=== PATIENT | female | born 1955 | race Two or more races ===

== ENCOUNTER 2024-06-28 12:14 | Observation (INO) | payer MEDICARE, MEDICAID, SELFPAY ==
[2024-06-28 12:14] VITALS: BMI 25.3
[2024-06-28 13:03] VITALS: BP 108/65; PULSE 93; RESP 18; TEMP 36.8; O2SAT 97; BMI 25.7
--- NOTE | 2024-06-28 13:29 | XR_ITS ---
Examination: Foot bilateral, 5 views views Technique: Bilateral AP feet single view Right lateral foot left lateral foot 2 views Right oblique foot left oblique foot 2 views total 5 views Exam date and time: June 28, 2024 1355 hours INDICATIONS: Nonhealing ulcers on both feet. FINDINGS: Severe osteopenia Age indeterminate fracture at the base of the proximal phalanx fifth digit No aris cortical bone destruction Soft tissue vascular calcification IMPRESSION: No aris cortical bone destruction MRI right foot left foot follow-up would best assess for early osteomyelitis
[2024-06-28 13:59] LABS: Lactate (Lactic Acid) 2.4 mMol/L (0.4-2.0)
[2024-06-28 14:02] LABS: Basophils # (Auto) 0.1 Thou/mm3 (0.0-0.2); Basophils % (Auto) 1 % (0-2.5); Eosinophils # (Auto) 0.4 Thou/mm3 (0.0-0.5); Eosinophils % (Auto) 4 % (0-10); Hematocrit 37.7 % (36.0-46.0); Hemoglobin 12.1 g/dL (12.0-16.0); Immature Granulocytes % (Auto) 1 % (0-0); Immature Granulocytes Auto 0.06 Thou/mm3 (0.00-0.00); Lymphocytes # (Auto) 1.8 Thou/mm3 (1.0-4.8); Lymphocytes % (Auto) 17 % (10-50); Mean Corpuscular HGB Conc 32.1 g/dl (31.0-37.0); Mean Corpuscular Hemoglobin 26.2 pg (25.0-35.0); Mean Corpuscular Volume 82 fL (80-100); Monocytes % (Auto) 9 % (0-12); Neutrophils # (Auto) 6.9 Thou/mm3 (1.8-7.7); Neutrophils % (Auto) 68 % (37-80); Nucleated Red Blood Cell % 0 /100 WBC (0); Platelet Count 310 Thou/mm3 (140-440); RDW Standard Deviation 41.6 fL (36.4-46.3); Red Blood Count 4.61 Miln/mm3 (4.00-5.20); White Blood Count 10.1 Thou/mm3 (3.6-11.0)
[2024-06-28 14:18] LABS: INR 1.1 (0.9-1.3); Prothrombin Time 12.1 Seconds (9.0-12.2)
[2024-06-28 14:21] LABS: Sed Rate (ESR) 51 mm/hr (0-30)
[2024-06-28 14:49] LABS: Alanine Aminotransferase 15 U/L (10-49); Albumin, Serum 3.9 gm/dL (3.4-4.8); Albumin/Globulin Ratio 1.3 (1.2-2.2); Alkaline Phosphatase 96 U/L (46-116); Anion Gap 9 (7-16); Aspartate Amino Transferase 16 U/L (0-34); BUN/Creatinine Ratio 21 Ratio (12-20); Bilirubin,Total 0.4 mg/dL (0.3-1.2); Blood Urea Nitrogen 44 mg/dL (9-23); C-Reactive Protein 4.4 mg/dL (0.0-0.9); Calcium 9.1 mg/dL (8.3-10.6); Calcium (Corrected) 9.2 mg/dL (8.5-10.1); Carbon Dioxide 22.1 mMol/L (20.0-31.0); Chloride 106 mMol/L (98-107); Creatinine (Component) 2.1 mg/dL (0.6-1.3); Estimated Creatinine Clearance 23.1 mL/min (>60); Glucose 123 mg/dL (74-106); Osmolality,Calculated 286 (275-295); Potassium 5.1 mMol/L (3.4-5.1); Procalcitonin 0.11 ng/ml (0.0-0.49); Sodium 137 mMol/L (136-145); Total Protein 6.9 gm/dL (5.7-8.2); eGFR 25 See Note
--- NOTE | 2024-06-28 15:07 | PD.EDRME ---
Rapid Medical Screening Exam RME Arrival date/time: 06/28/24 12:14 69-year-old female presents emergency department complains of infection to bilateral feet Chief Complaint: Skin/Abscess/Foreign Body Time Seen by Provider: 06/28/24 12:51 Vital signs: Vital Signs Temperature 98.2 F 06/28/24 13:03 Pulse Rate 93 06/28/24 13:03 Respiratory Rate 18 06/28/24 13:03 Blood Pressure 108/65 06/28/24 13:03 Pulse Oximetry (%) 97 06/28/24 13:03 Oxygen Delivery Method Room Air 06/28/24 13:03
--- NOTE | 2024-06-28 16:29 | PD.EDSKIN ---
ED Skin Abcess FB-RME/HPI General Chief complaint: Skin/Abscess/Foreign Body Stated complaint: WOUNDS TO BILATERAL FEET Time Seen by Provider: 06/28/24 12:51 Arrival date/time: 06/28/24 12:14 RME / HPI RME / HPI narrative: 06/28/24 12:14 69-year-old female presents emergency department complains of infection to bilateral feet DR. GIBSON MAIN ED EVALUATION 69 year old female with history of hypertension and diabetes presents to the ED for evaluation of sores on both feet. Reportedly is cleaning and wrapping the sores on her feet at home. However has noticed no improvement and is concerned they may be infected. Denies stepping on any foreign bodies. No other complaints reported. Denies fevers or chills. Related Data Previous Rx's ?Medication ?Instructions ?Recorded naproxen 500 mg tablet (Naprosyn) 500 mg PO BID #30 tabs 03/07/19 insulin glargine 100 unit/mL (3 24 unit (0.24 mL) subcut QAM #15 mL 01/29/24 mL) subcutaneous pen (Lantus Solostar U-100 Insulin) insulin glargine 100 unit/mL (3 24 unit (0.24 mL) subcut QPM #15 mL 01/29/24 mL) subcutaneous pen (Lantus Solostar U-100 Insulin) lisinopril 20 mg tablet 20 mg PO QDAY #14 tabs 01/29/24 lisinopril 20 mg tablet 20 mg PO QDAY #14 tabs 01/29/24 Allergies Allergy/AdvReac Type Severity Reaction Status Date / Time promethazine Allergy Intermediate ANXIETY Verified 06/28/24 12:18 Review of Systems Review of Systems Narrative Review of Systems: GEN: No fever, no chills, no weight loss EYES: No discharge, no visual changes, no pain HEENT: No ear pain, no congestion, no sore throat PULM: No shortness of breath, no cough, no congestion CV: No chest pain, no palpitations GI: No nausea, no vomiting, no diarrhea, no pain, no constipation : No frequency, no urgency and no dysuria MUSC/SKEL No joint pain, no back pain SKIN: +wound on both feet. No rash NEURO: No weakness, no headache Past Medical History Past Medical History CARDIAC: Negative Congestive Heart Failure RESPIRATORY: Negative Chronic Obstructive Pulmonary Disease (COPD) GENITOURINARY: Negative Renal Disease ENDOCRINE: Positive Diabetes Mellitus Type 2 (not on any medications); Negative Diabetes Mellitus Type 1 Social History SMOKING STATUS: Never smoker ED Exam Narrative Physical exam: GENERAL APPEARANCE: Well hydrated, well nourished, in no acute distress. VITALS: All vitals were reviewed and the pulse ox is 97% on room air which is normal according to my interpretation. HEENT: Normocephalic, atramatic, EOMI. Moist oromucosa. No jaundice NECK: Supple, no JVD or bruits. CARDIOVASCULAR: Heart regular without S3-S4 or murmur. No rubs or gallops. LUNGS/CHEST: Clear to auscultation bilaterally. No rales, rhonchi, or wheezing. Normal inspection. ABDOMEN: Soft, nontender, with normal bowel sounds. No pulsatile masses. No rebound, rigidity, or guarding. No incarcerated hernia. Normal inspection and palpation. EXTREMITIES: Normal inspection and palpation. No edema, clubbing, or cyanosis. Intact CSM SKIN: There is one semi healing ulcer at the bottom of the the right great toe measuring approx. 1 cm no foul odor. There is a wound with a scab measuring approx. 1.5cm at the bottom of the left forefoot with mild redness and swelling to the surrounding tissue, palpation reveals fluctuance, no puss at this time. Warm and dry without rashes. NEURO: Alert and oriented x3. Cranial nerves II through XII grossly intact. PSYCHIATRIC: Normal mood and affect. No psychosis Course Quality Measures none Orders Category Date Time Status Consult to General Surgery Stat Cons 06/28/24 17:08 Ordered XR foot comp BI min 3V Stat Exams 06/28/24 13:29 Completed Blood Culture (Lab) Stat Lab 06/28/24 13:40 Received CBC Stat Lab 06/28/24 13:40 Completed CMP [Comprehensive Metabolic Panel] Stat Lab 06/28/24 13:40 Completed CRP [C-Reactive Protein] Stat Lab 06/28/24 13:40 Completed ESR [Sed Rate (ESR)] Stat Lab 06/28/24 13:40 Completed Lactic Acid [Lactate (Lactic Acid)] Stat Lab 06/28/24 13:40 Completed Lactic Acid, 3 HR Stat Lab 06/28/24 16:56 Ordered PT [Prothrombin Time with INR] Stat Lab 06/28/24 13:40 Completed Procalcitonin Stat Lab 06/28/24 13:40 Completed Piper/Tazo 3.375 gm [Zosyn] Med 06/28/24 17:07 Active 3.375 gm in 50 ml IV X1 Tetanus, Diphtheria Toxoids/Pf [Tenivac-Adult] Med 06/28/24 17:01 Discontinued 0.5 ml IMI .ONCE ONE Vancomycin Inj 1,000 mg Med 06/28/24 17:07 Active Sodium Chloride 0.9% 250 ml [Ns] 250 ml IV X1 Vital Signs Vital signs: Vital Signs Temperature 98.2 F 06/28/24 13:03 Pulse Rate 93 06/28/24 13:03 Respiratory Rate 18 06/28/24 13:03 Blood Pressure 108/65 06/28/24 13:03 Pulse Oximetry (%) 97 06/28/24 13:03 Oxygen Delivery Method Room Air 06/28/24 13:03 Skin / Abscess / Foreign Body MDM Narrative MDM Narrative:: Patient is insulin-dependent diabetic. She has been having this diabetic foot ulcer and scab in both feet for the last 1 week. She does not remember any injury or trauma or falling. She does not think that there is any foreign body in there. No fever. No pain. No other problem. And the blood sugar has been under control. On exam there is fluctuance and redness in the diabetic foot ulcer in the left forefoot measuring about 1 and half to 2 cm in diameter. There is scab over it. There is fluctuance. There is a small diabetic foot ulcer in the bottom of the right first toe measuring about 1 cm with scab. This 1 does not have any fluctuance. And no redness in the surrounding tissue. CBC unremarkable. BUN of 44 creatinine of 2.1. Sed rate of 51 which is elevated. Lactic acid is 2.4. Procalcitonin is negative. CRP is 44. Which is also elevated. Coagulation is negative. X-rays of both feet Was reviewed by and interpreted by me as follow: No acute fracture. Radiographically or clinically. Positive osteopenia. Positive for arthritis. No metallic foreign body seen which is confirmed by Dr. Rajinder Peterson based on my phone call with him. There is no free air in the soft tissue. No dislocation. 4:50 PM, I spoke to Dr. Chao, hospitalist in person. He is here and he has seen the patient with me. He agreed to admit the patient for further evaluation and treatment. He suggest surgical consultation. 5 PM, I spoke to and discussed with Dr. Lopez, surgeon on-call. He will consult. In the emergency department I am giving the patient tetanus vaccine, IV antibiotics namely Zosyn and vancomycin. It is already 5 PM. It is too late to order for the MRI for today. Patient data External records reviewed:: [facility] (I reviewed ED visit on 01/29/2024) Clinical information provided by:: patient Social determinants that could affect healthcare access:: none Patient has the following chronic illnesses:: HTN, DM How is presenting disease/condition affected by chronic disease/condition?: exacerbated by Evaluation data The following diagnostics were reviewed and interpreted by me:: lab results and radiology exam(s) Lab and/or radiology exams considered but not ordered:: None Interpretation Summary: Ordering Physician: Shantal MILLER),Andrés HERNANDEZ Date of Service: 06/28/24 Procedure(s): XR foot comp BI min 3V Accession Number(s): [id number] cc: Shantal MILLER),Andrés HERNANDEZ; Marty Stevens MD; Rajinder Peterson MD~ ADDENDUM ADDENDUM #1 Addendum: The indeterminate fracture at the base of the proximal phalanx is the left fifth digit ORIGINAL REPORT Examination: Foot bilateral, 5 views views Technique: Bilateral AP feet single view Right lateral foot left lateral foot 2 views Right oblique foot left oblique foot 2 views total 5 views Exam date and time: June 28, 2024 1355 hours INDICATIONS: Nonhealing ulcers on both feet. FINDINGS: Severe osteopenia Age indeterminate fracture at the base of the proximal phalanx fifth digit No aris cortical bone destruction Soft tissue vascular calcification IMPRESSION: No aris cortical bone destruction MRI right foot left foot follow-up would best assess for early osteomyelitis Addendum Dictated By: Rajinder Peterson MD Addendum Signed By: 06/28/241625 Addendum Cosigned By: DD/ TD/TT: 12/ Examination: Foot bilateral, 5 views views Technique: Bilateral AP feet single view Right lateral foot left lateral foot 2 views Right oblique foot left oblique foot 2 views total 5 views Exam date and time: June 28, 2024 1355 hours INDICATIONS: Nonhealing ulcers on both feet. FINDINGS: Severe osteopenia Age indeterminate fracture at the base of the proximal phalanx fifth digit No aris cortical bone destruction Soft tissue vascular calcification IMPRESSION: No aris cortical bone destruction MRI right foot left foot follow-up would best assess for early osteomyelitis Dictated By: Rajinder Peterson MD Signed By: <Electronically signed by Rajinder Peterson MD in OV> 06/28/24 1448 Medications / Prescriptions Medications or Prescriptions considered but not ordered:: None Medication administrations:: Medication Administration History Piperacillin/Tazobactam/Dextrose (Zosyn) 3.375 gm in 50 mls @ 100 mls/hr IV X1 ONE Stop: 06/28/24 17:36 Vancomycin HCl 1,000 mg/ (Sodium Chloride) 250 mls @ 150 mls/hr IV X1 ONE Stop: 06/28/24 18:46 Discontinued Medications Tetanus/Diphtheria Toxoids (Tetanus,Diphtheria Toxoids/Pf (Adult) 0.5 Ml Syringe) 0.5 ml IMi .ONCE ONE Stop: 06/28/24 17:02 See above Consultations Consultation(s) initiated? (list below): Yes Consultation #1 (Physician, Specialty, Details): I spoke with general surgeon Dr. Valdez as noted above. Consultation #2 (Physician, Specialty, Details): I spoke with hospitalist Dr. Chao as noted above. Diagnosis Skin/Abscess Differential Diagnosis: abscess of skin or subcutaneous tissue, cellulitis and other (Diabetic foot ulcer ) Most likely diagnosis given after review of the tests above:: Diabetic foot ulcer Admission Indicated Admission indicated?: indicated Admission Request Was there a request for admission?: Yes Admission Attestation Admission request attestation: Discussed case with [] from Hospitalist service regarding admission. Discussed patients ED course, exam findings, labs, and radiology results. The Hospitalist [agrees,declines] to accept the patient for admission. Disposition Plan Disposition Plan: Admit Discharge Plan Plan Patient Disposition: Admit Acute Care w/in Hospital Disposition Comment: Stable for admit Prescriptions/Referrals Prescriptions/Med Rec: No Action naproxen [Naprosyn] 500 mg tablet 500 mg PO BID Qty: 30 0RF lisinopril 20 mg tablet 20 mg PO QDAY Qty: 14 0RF insulin glargine [Lantus Solostar U-100 Insulin] 100 unit/mL (3 mL) insulin pen 24 unit subcut QPM Qty: 15 0RF insulin glargine [Lantus Solostar U-100 Insulin] 100 unit/mL (3 mL) insulin pen 24 unit subcut QAM Qty: 15 0RF lisinopril 20 mg tablet 20 mg PO QDAY Qty: 14 0RF Referrals: Marty Stevens MD [Primary Care Provider] - In 1 week Problem List Clinical Impression: Diabetic foot ulcers Patient/Caregiver Discharge Instructions Print Language: Icelandic Stand Alone Forms: Bernadine Award Info., Patient Portal Info Letter
[2024-06-28 16:56] LABS: Reflex Lactate? Y
--- NOTE | 2024-06-28 17:34 | PD.SURCONS ---
Meds Home Medications and Allergies Allergies Allergy/AdvReac Type Severity Reaction Status Date / Time promethazine Allergy Intermediate ANXIETY Verified 06/28/24 12:18 Exam Vital Signs Temp Pulse Resp BP Pulse Ox O2 Del Method 98.2 F 93 18 108/65 97 Room Air 06/28/24 13:03 06/28/24 13:03 06/28/24 13:03 06/28/24 13:03 06/28/24 13:03 06/28/24 13:03 Assessment & Plan Additional Assessment Additional comments: Impression: Superficial ulcers over the left forefoot with necrotic base Superficial ulcers over the right great toe Plan Plan: Patient does not require inpatient care or antibiotic therapy. This could be managed as outpatient with a slight debridement in the office. She does not require MRI because the wound looks very superficial and there is no evidence of osteomyelitis. If the patient is discharged they can give an appointment with my office sometime next week. Thank you
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
--- NOTE | 2024-06-28 17:48 | EKG_ITS ---
[facility] Test Date: 2024-06-28 Pat Name: SHEN THURMAN Department: Room: - Gender: Female [employer] Coach: [facility] : 1955 Requested By: Tripp Garcia Order Number: [id number] Reading MD: Tripp Garcia Measurements Intervals [place] Rate: 79 P: 36 NC: 132 QRS: 15 QRSD: 85 T: 92 QT: 350 QTc: 402 Interpretive Statements SINUS RHYTHM NONSPECIFIC ST & T-WAVE ABNORMALITY No previous ECG available for comparison /store/S0/[id number].pdf
--- NOTE | 2024-06-28 17:49 | XR_ITS ---
Examination: Arterial duplex lower extremity study. Date and time of exam: June 28, 2024 1837 hrs. Indications: Bilateral foot ulcers noticed beginning 5 days ago Findings: Duplex sonographic imaging of the lower extremity arteries using B-mode/Marin scale imaging and Doppler spectral analysis and color flow. Ankle brachial indices have been recorded. Right common femoral artery demonstrates triphasic flow. Right superficial femoral artery demonstrates biphasic flow. Right popliteal artery demonstrates biphasic flow. Right posterior tibial artery demonstrated biphasic flow. Right ankle/brachial index is 1.1. Left common femoral artery demonstrates biphasic flow. Left superficial femoral artery demonstrates biphasic flow. Left popliteal artery demonstrates biphasic flow. Left posterior tibial artery demonstrated biphasic flow. Left ankle/brachial index is 1.2. Impression: Findings suspicious for obstructive arterial disease in the trifurcation arteries below the knees bilaterally Recommend correlation with elective CTA abdominal aorta iliofemoral runoff post intravenous contrast
[2024-06-28 17:54] LABS: Lactic Acid, 3 HR 1.6 mMol/L (0.4-2.0)
[2024-06-28 19:48] VITALS: BP 203/91; PULSE 89; RESP 16; TEMP 37.2; O2SAT 100
[2024-06-28 20:01] VITALS: BP 190/96; PULSE 86; RESP 14; O2SAT 98
[2024-06-28] MEDS: TETANUS,DIPHTHERIA TOXOIDS/PF (ADULT) 0.5 ML SYRINGE IMi (20:20)
[2024-06-28] MEDS: PIPER/TAZO 3.375 GM 3.375 GM/50 ML BAG IV (20:21)
[2024-06-28 20:45] VITALS: BMI 25.9
[2024-06-28] MEDS: DOXYCYCLINE INJ 100 MG in SODIUM CHLORIDE 0.9% (P) 100 ML IV (21:08)
[2024-06-28 22:15] VITALS: BP 186/90; BP 189/93; PULSE 81; RESP 16; O2SAT 95
[2024-06-28 22:18] VITALS: BP 186/90; PULSE 81
[2024-06-28] MEDS: GABAPENTIN 100 MG CAPSULE 200 MG PO (22:18)
[2024-06-28] MEDS: hydrALAZINE HCL 10 MG TABLET PO (22:18)
[2024-06-28] MEDS: Vancomycin Inj 1,000 MG in SODIUM CHLORIDE 0.9% 250 ML 250 ML 150 MG IV (22:40)
[2024-06-29] VITALS (7 sets, daily range): BP systolic 113–182; BP diastolic 72–96; PULSE 68–84; RESP 18–19; TEMP 36.2–36.8; O2SAT 96–98
[2024-06-29] MEDS: SODIUM CHLORIDE 0.9% 1000 ML 1,000 ML 75 ML IV (02:21)
[2024-06-29 05:57] LABS: Basophils # (Auto) 0.1 Thou/mm3 (0.0-0.2); Basophils % (Auto) 1 % (0-2.5); Eosinophils # (Auto) 0.5 Thou/mm3 (0.0-0.5); Eosinophils % (Auto) 5 % (0-10); Hematocrit 33.4 % (36.0-46.0); Immature Granulocytes % (Auto) 1 % (0-0); Immature Granulocytes Auto 0.06 Thou/mm3 (0.00-0.00); Lymphocytes # (Auto) 2.3 Thou/mm3 (1.0-4.8); Lymphocytes % (Auto) 24 % (10-50); Mean Corpuscular HGB Conc 32.9 g/dl (31.0-37.0); Mean Corpuscular Hemoglobin 26.3 pg (25.0-35.0); Mean Corpuscular Volume 80 fL (80-100); Monocytes # (Auto) 1.1 Thou/mm3 (0.0-0.8); Monocytes % (Auto) 11 % (0-12); Neutrophils # (Auto) 5.6 Thou/mm3 (1.8-7.7); Neutrophils % (Auto) 58 % (37-80); Nucleated Red Blood Cell % 0 /100 WBC (0); Platelet Count 324 Thou/mm3 (140-440); RDW Standard Deviation 40.6 fL (36.4-46.3); Red Blood Count 4.18 Miln/mm3 (4.00-5.20); White Blood Count 9.6 Thou/mm3 (3.6-11.0)
[2024-06-29 06:09] LABS: Sed Rate (ESR) 43 mm/hr (0-30)
[2024-06-29 06:22] LABS: Glucose Estimated Average 226 mg/dL (80-131); Hemoglobin A1C 9.5 % Hgb (4.8-6.0)
[2024-06-29 06:32] LABS: Anion Gap 6 (7-16); BUN/Creatinine Ratio 30 Ratio (12-20); Blood Urea Nitrogen 39 mg/dL (9-23); C-Reactive Protein 3.1 mg/dL (0.0-0.9); Calcium 8.8 mg/dL (8.3-10.6); Carbon Dioxide 23.7 mMol/L (20.0-31.0); Cardiac Risk Estimate 2.8 RATIO (3.7-5.6); Chloride 106 mMol/L (98-107); Cholesterol 109 mg/dL (132-200); Creatinine (Component) 1.3 mg/dL (0.6-1.3); Estimated Creatinine Clearance 37.4 mL/min (>60); Glucose 108 mg/dL (74-106); HDL Cholesterol 39 mg/dL (40-60); LDL Cholesterol,Calculated 55 mg/dL (0-130); Magnesium 1.7 mg/dL (1.6-2.6); Osmolality,Calculated 282 (275-295); Potassium 4.8 mMol/L (3.4-5.1); Sodium 136 mMol/L (136-145); Thyroid Stimulating Hormone 0.59 uIU/mL (0.55-4.78); Triglycerides 77 mg/dL (30-150); eGFR 45 See Note
[2024-06-29] MEDS: cefTRIAXone 2 GM in SODIUM CHLORIDE 0.9% (P) 50 ML IV (09:36)
[2024-06-29] MEDS: DOXYCYCLINE INJ 100 MG in SODIUM CHLORIDE 0.9% (P) 100 ML IV (09:36)
[2024-06-29] MEDS: amLODIPine BESYLATE 5 MG TABLET 10 MG PO (09:37)
[2024-06-29] MEDS: GABAPENTIN 100 MG CAPSULE 200 MG PO (09:37)
[2024-06-29] MEDS: INSULIN LISPRO (AdmeLOG) 1 UNIT/0.01 ML UNIT SC (11:39)
--- NOTE | 2024-06-29 12:01 | ESDS_ITS ---
<Statement entered by Manav Lira MD - 06/29/24 15:41> Patient was seen and examined by me personally. I agree with the discharge plan as discussed with the internet technology manager physician, and my attending, Dr. Chao. Manav Lira MD, PGY-3 Planned Discharge Date 06/29/24 DS: Providers Provider Date of admission: 06/28/24 19:15 Primary care physician: Marty Stevens MD Admitting Provider: Bj Chao MD Attending Provider on Admission: Tripp Garcia MD Consults: 06/28/24 17:08 Consult to General Surgery Stat Comment: Consulting Provider: Rosette Lopez 06/28/24 19:41 Referral Wound Care Routine Comment: 06/29/24 11:27 Referral OP Wound Healing Dept Routine Comment: Instructions: Bilateral feet DM ulcers Attending Provider on DC: Tripp Garcia MD Discharging Provider: Tripp Garcia MD DS: Diagnosis Problem List Completed Was Problem List Reviewed/Reconciled?: Yes Hospital Course Hospital Course Hospital course: A 65-year-old female with past medical history of insulin-dependent diabetes mellitus, diabetic neuropathy, hypertension previously on lisinopril, not on any medication as of now presented to the hospital with complaints of ulcer on both feet and diagnosed to have diabetic foot, Acute kidney injury. Vitals are stable at the time of admission. Labs were unremarkable except for BUN 44, creatinine 2.1, C-reactive protein 4.4. HbA1c is 9.5. Foot x-ray did not show any evidence of osteomyelitis. Arterial Doppler of lower extremity showed Findings suspicious for obstructive arterial disease in the trifurcation arteries below the knees bilaterally. Dr. Valdez suggested - Patient does not require inpatient care or antibiotic therapy. This could be managed as outpatient with a slight debridement in the office. She does not require MRI because the wound looks very superficial and there is no evidence of osteomyelitis. Patient was treated with IV antibiotics, IV fluids and later acute kidney injury is resolved and creatinine came back to 1.3. Patient was found to have elevated blood pressures during the hospitalization and treated with antihypertensives. Explained about diabetic diet, footcare and recommended to follow-up with Dr. Valdez in the outpatient basis for debridement. Patient was discharged to home with the following medications and recommendations -Follow-up with PCP within 1 week of discharge. If you do not have appointment, please [facility]. Call [phone] to make an appointment. -Follow up with Dr. Valdez within 1 week of discharge for follow-up of diabetic ulcers for debridement -Follow up with wound care later and follow their recommendations -Started on amlodipine 10 Mg p.o. daily, hydralazine 100 Mg p.o. 3 times daily, aspirin 81 Mg p.o. daily, insulin degludec 10 units subcutaneously at nighttime. -Continuous glucose monitoring -Take medications as prescribed. -Return to ED if symptoms persist or return # Diabetic foot # To rule out osteomyelitis, low suspicion # Diabetic neuropathy # Acute kidney injury # Insulin-dependent diabetes mellitus # Diabetic neuropathy # History of hypertension Patient plan of care was discussed with the attending physician, Dr. Chao and senior resident Dr. Soraya Garcia, PGY1 Time Spent with Patient Time attestation: Total time spent providing and/or coordinating discharge services: Time spent: Greater than 30 minutes Exam Vital Signs Temp Pulse Resp BP Pulse Ox O2 Del Method 97.2 F 84 18 166/86 H 97 Room Air 06/29/24 08:00 06/29/24 09:37 06/29/24 08:00 06/29/24 09:37 06/29/24 08:00 06/29/24 08:00 Narrative Exam General: Awake. Moderately built and nourished HEENT: Normocephalic, atraumatic, mucous membranes moist. Heart: Regular rate and rhythm, no murmurs. Lungs: Clear to auscultation with no wheezing or crackles. Abdomen: Soft, nondistended, nontender, positive bowel sounds. ?No guarding or rebound tenderness. Neurologic: Alert and oriented x3, decreased sensation noted on bilateral plantar surface of foot, and patient able to move all 4 extremities. Extremities: 2 ulcers, noted on sole of left foot and plantar surface of right great toe with blackish necrotic tissue without any active pus draining from that site. Skin: No rash or ecchymoses. Discharge Plan Plan Patient Disposition: HOME (Self Care) Disposition Comment: Stable for admit Patient condition on transfer: Stable Care Plan Goals: -Follow-up with PCP within 1 week of discharge. If you do not have appointment, please [facility] with [facility]. Call [phone] to make an appointment. -Follow up with Dr. Valdez within 1 week of discharge for follow-up of diabetic ulcers for debridement -Follow up with wound care later and follow their recommendations -Started on amlodipine 10 Mg p.o. daily, hydralazine 100 Mg p.o. 3 times daily, aspirin 81 Mg p.o. daily, insulin degludec 10 units subcutaneously at nighttime. -Continuous glucose monitoring -Take medications as prescribed. -Return to ED if symptoms persist or return Prescriptions/Referrals Prescriptions/Med Rec: New amlodipine 10 mg tablet 10 mg PO HS 30 Days Qty: 30 0RF gabapentin 100 mg capsule 100 mg PO BID 30 Days Qty: 60 0RF hydralazine 100 mg tablet 100 mg PO TID 30 Days Qty: 90 0RF insulin degludec 100 unit/mL (3 mL) insulin pen 10 unit subcut QPM 30 Days Qty: 3 0RF (DME) ZaelabStyle Jeffry 3 Sensor Device See Rx Instructions .Route Qty: 1 0RF Rx Instructions: As directed (DME) pen needle, diabetic [1st Tier Unifine Pentips] 29 gauge x 1/2 needle See Rx Instructions .Route Qty: 100 0RF Rx Instructions: As directed (DME) blood-glucose meter Kit See Rx Instructions .Route Qty: 1 0RF Rx Instructions: As directed (DME) Blood Glucose Test Strip See Rx Instructions .Route Qty: 50 0RF Rx Instructions: As directed (DME) lancets Misc See Rx Instructions .Route Qty: 100 0RF Rx Instructions: As directed aspirin 81 mg tablet,delayed release (DR/EC) 81 mg PO QDAY 30 Days Qty: 30 0RF Referrals: Marty Stevens MD [Primary Care Provider] - Rosette Lopez MD [Physician] - Patient/Caregiver Discharge Instructions Discharge Activity: resume usual activities Other Discharge Activity Instructions:: Follow up at [facility], [address] [place] [address]. Call [phone] for appointment. Wound care to Right great toe and Left bottom of foot. May shower making sure feet and toe creases are fully dry. Swab wounds with betadine/Iodone allow to dry than cover with foam dressing. Change once a day and as needed. -ambulate using to heel of your feet, avoid walking on ulcer sites. Education Materials: Using a Blood Sugar Log, CGM, Nutrition for Wound Healing, Wound Care Dc, Diabetes Exercise Plan, Your Diabetes Foot Care Program Print Language: [place] Islander Stand Alone Forms: Bernadine Award Info., Patient Portal Info Letter, Work/Release Restrictions Discharge Order Discharge Orders: Discharge (Routine); Ordered 06/29/24 Ordered By: Saturnino Delgado Quality Discharge Quality Measures VTE prophylaxis MD Attestestation MD Attestation I reviewed labs, imaging, EKG, home medications and prior available records. Face to face evaluation was performed by me. I have personally examined the patient and discussed assessment and plan with the IM team. I reviewed the resident note and agree with the plan with exceptions as below. Diabetic foot ulcer Osteomyelitis of right foot, likely chronic Uncontrolled diabetes mellitus with hyperglycemia, insulin-dependent, possibly type II Acute kidney injury PAD Discontinued antibiotics per surgery recommendations Started insulin Lantus plus home oral diabetic medications. Monitor fingersticks. Follow-up as outpatient Follow-up with surgery as outpatient/podiatry Started the patient on aspirin. Outpatient CT angiography of the lower extremities and vascular surgery follow-up. Avoid tobacco use. Counseled the patient regarding the importance of insulin and diet compliance Kidney function improved with IV hydration. Avoid nephrotoxins. Renally dosed medications. Time spent is 40 minutes. More than 50% of the time was spent on patient education and coordination of care.
== END 2024-06-29 16:15 | disposition home or self-care (01) ==
LOC: SERX 17:10 → SERHOLD 19:42 → S3SX 06-29 06:48 → SERHOLD 06-29 07:01 → S3SX 06-29 07:01
PROVIDERS: Nurse Practitioner Primary Care; Admitting Provider Student in an Organized Health Care Education/Training Program; Emergency Provider Emergency Medicine; PCP Family Medicine
DX: N17.9 Acute kidney failure, unspecified (principal); E11.40 Type 2 diabetes mellitus with diabetic neuropathy, unspecified; E11.621 Type 2 diabetes mellitus with foot ulcer; E11.65 Type 2 diabetes mellitus with hyperglycemia; I10 Essential (primary) hypertension; L97.519 Non-pressure chronic ulcer of other part of right foot with unspecified severity; L97.529 Non-pressure chronic ulcer of other part of left foot with unspecified severity; Z23 Encounter for immunization; Z66 Do not resuscitate; Z90.89 Acquired absence of other organs; Z01.810 Encounter for preprocedural cardiovascular examination; E11.69 Type 2 diabetes mellitus with other specified complication; M86.8X7 Other osteomyelitis, ankle and foot
CPT/HCPCS: 36415; 73630; 80048; 80053; 80061; 82436; 82570; 83036; 83605; 83735; 84133; 84145; 84156; 84300; 84443; 85025; 85610; 85652; 86140; 87040; 90471; 90714; 93005; 93925; 96365; 96366; 99285; G0378; J0696; J1815; J2543; J3371; J3490; J7030; J7050; A9270; J3370

== ENCOUNTER → 2024-07-18 | Outpatient (CLI) | payer MEDICARE, OTHER, SELFPAY | END | disposition home or self-care (01) | LOC: SWHD 12:50 | PROVIDERS: Visit Provider Student in an Organized Health Care Education/Training Program | DX: E11.621 Type 2 diabetes mellitus with foot ulcer (principal); L97.422 Non-pressure chronic ulcer of left heel and midfoot with fat layer exposed; L97.515 Non-pressure chronic ulcer of other part of right foot with muscle involvement without evidence of necrosis; E11.40 Type 2 diabetes mellitus with diabetic neuropathy, unspecified; I10 Essential (primary) hypertension; Z91.148 Patient's other noncompliance with medication regimen for other reason; R60.0 Localized edema; Z79.4 Long term (current) use of insulin | CPT/HCPCS: 11042; 99213; A9270; G0463 ==

== ENCOUNTER → 2024-07-26 | Outpatient (CLI) | payer OTHER, SELFPAY | END | disposition home or self-care (01) | LOC: SWHD 13:29 | PROVIDERS: Visit Provider Surgery | DX: E11.621 Type 2 diabetes mellitus with foot ulcer (principal); L97.422 Non-pressure chronic ulcer of left heel and midfoot with fat layer exposed; L97.512 Non-pressure chronic ulcer of other part of right foot with fat layer exposed; E11.40 Type 2 diabetes mellitus with diabetic neuropathy, unspecified; I10 Essential (primary) hypertension; R60.0 Localized edema; Z79.4 Long term (current) use of insulin; Z91.148 Patient's other noncompliance with medication regimen for other reason | CPT/HCPCS: 11042; A9270 ==

== ENCOUNTER → 2024-08-02 | Outpatient (CLI) | payer MEDICARE, OTHER, SELFPAY | END | disposition home or self-care (01) | PROVIDERS: Visit Provider Student in an Organized Health Care Education/Training Program | DX: E11.621 Type 2 diabetes mellitus with foot ulcer (principal); L97.422 Non-pressure chronic ulcer of left heel and midfoot with fat layer exposed; L97.512 Non-pressure chronic ulcer of other part of right foot with fat layer exposed; E11.40 Type 2 diabetes mellitus with diabetic neuropathy, unspecified; I10 Essential (primary) hypertension; R60.0 Localized edema; Z79.4 Long term (current) use of insulin; Z91.148 Patient's other noncompliance with medication regimen for other reason | CPT/HCPCS: 11042; A9270 ==

== ENCOUNTER → 2024-08-09 | Outpatient (CLI) | payer OTHER, SELFPAY | END | disposition home or self-care (01) | LOC: SWHD 10:57 | PROVIDERS: Visit Provider Student in an Organized Health Care Education/Training Program | DX: E11.621 Type 2 diabetes mellitus with foot ulcer (principal); L97.422 Non-pressure chronic ulcer of left heel and midfoot with fat layer exposed; L97.512 Non-pressure chronic ulcer of other part of right foot with fat layer exposed; E11.40 Type 2 diabetes mellitus with diabetic neuropathy, unspecified; I10 Essential (primary) hypertension; R60.0 Localized edema; Z79.4 Long term (current) use of insulin; Z91.148 Patient's other noncompliance with medication regimen for other reason | CPT/HCPCS: 97597; A9270 ==

== ENCOUNTER → 2024-08-15 | Outpatient (CLI) | payer OTHER, SELFPAY | END | disposition home or self-care (01) | LOC: SWHD 08:34 | PROVIDERS: Visit Provider Student in an Organized Health Care Education/Training Program | DX: E11.621 Type 2 diabetes mellitus with foot ulcer (principal); L97.422 Non-pressure chronic ulcer of left heel and midfoot with fat layer exposed; L97.512 Non-pressure chronic ulcer of other part of right foot with fat layer exposed; E11.40 Type 2 diabetes mellitus with diabetic neuropathy, unspecified; I10 Essential (primary) hypertension; R60.0 Localized edema; Z79.4 Long term (current) use of insulin; Z91.148 Patient's other noncompliance with medication regimen for other reason | CPT/HCPCS: 97597; 11042; A9270 ==

== ENCOUNTER 2024-08-20 17:40 | Inpatient (IN) | payer MEDICARE, MEDICAID, SELFPAY ==
[2024-08-20] VITALS (9 sets, daily range): BP systolic 103–177; BP diastolic 50–86; PULSE 92–106; RESP 11–29; TEMP 37.1–37.9; O2SAT 94–98; BMI 20.5
--- NOTE | 2024-08-20 17:40 | PC.NURSE ---
PT BIB IMPERIAL FOR AMS WHEN FOUND PT WAS LAYING SUPINE ON COUCH COVERED IN URINE, PT HAD FSBS 378, SINUS TACH 106, PT WAS GIVEN O0 AND PLACES ON MONITOR, PT TAKES BACLOFEN, IBUPROFEN. PER EMS FAMILY STATED NO MEDICAL HX PT STATED DIABETES. NO OTHER HISTORY PROVIDED.
--- NOTE | 2024-08-20 18:19 | PC.NURSE ---
PT CLOTHES LOWER CLOSED WERE DISPOSED THEY WERE SOILED IN URINE AND STOOL
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
--- NOTE | 2024-08-20 18:30 | EKG_ITS ---
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
--- NOTE | 2024-08-20 18:33 | XR_ITS ---
Examination: CT brain head without contrast. 2-D sagittal coronal reconstructions Date and time of exam:August 30, 2024 1847 hrs. Indications: Altered mental status today CTDI: vol (mGy):55.4 DLP: (mGycm):1134 Technique: Multiple CT axial sections of the brain have been obtained, 5 mm slice thickness. Contrast has not been administered. 2-D sagittal, coronal reconstructions have been obtained Low dose protocols were performed. One or more of the following dose reduction techniques were used; automated exposure control, adjustment of the mA and/or KV according to patient size, use of iterative reconstruction technique. Findings: No significant ventricular enlargement. 4 mm calcification in the left brainstem stable compared with January 30, 2019 Intra-axial or extra-axial hemorrhage density is not seen. No mass effect or midline shift Basal cisterns are not remarkable. Fourth ventricle is midline. Cranial vault intact. Impression: Negative for acute hemorrhage, mass effect or midline shift Advise clinical correlation and follow-up accordingly
--- NOTE | 2024-08-20 18:34 | XR_ITS ---
Examination: AP chest single view Technique one AP portable upright chest single view Exam date and time: August 2024 191 hrs. Comparison August 08, 2024 Indications: Coughing today. Findings: The film is rotated LPO No lobar pneumonia or pulmonary edema Minor prominence left ventricle Impression: Limited study No pneumonia identified
[2024-08-20 19:22] LABS: Lactate (Lactic Acid) 2.8 mMol/L (0.4-2.0)
[2024-08-20] MEDS: SODIUM CHLORIDE 0.9% 1000 ML 1,000 ML IV (19:28)
[2024-08-20] MEDS: cefTRIAXone 1,000 MG in SODIUM CHLORIDE 0.9% (P) 50 ML 100 MG IV (19:29)
[2024-08-20 19:30] LABS: Basophils # (Auto) 0.1 Thou/mm3 (0.0-0.2); Basophils % (Auto) 1 % (0-2.5); Eosinophils % (Auto) 0 % (0-10); Hematocrit 39.7 % (36.0-46.0); Hemoglobin 13.4 g/dL (12.0-16.0); Immature Granulocytes % (Auto) 1 % (0-0); Immature Granulocytes Auto 0.12 Thou/mm3 (0.00-0.00); Lymphocytes # (Auto) 0.3 Thou/mm3 (1.0-4.8); Lymphocytes % (Auto) 2 % (10-50); Mean Corpuscular HGB Conc 33.8 g/dl (31.0-37.0); Mean Corpuscular Hemoglobin 26.1 pg (25.0-35.0); Mean Corpuscular Volume 77 fL (80-100); Monocytes # (Auto) 1.3 Thou/mm3 (0.0-0.8); Monocytes % (Auto) 7 % (0-12); Neutrophils # (Auto) 16.3 Thou/mm3 (1.8-7.7); Neutrophils % (Auto) 90 % (37-80); Nucleated Red Blood Cell % 0 /100 WBC (0); Platelet Count 152 Thou/mm3 (140-440); Red Blood Count 5.13 Miln/mm3 (4.00-5.20); White Blood Count 18.1 Thou/mm3 (3.6-11.0)
[2024-08-20 19:40] LABS: INR 1.2 (0.9-1.3); Partial Thromboplastin Time 29.4 Seconds (22.0-36.0); Prothrombin Time 12.9 Seconds (9.0-12.2)
[2024-08-20 19:48] LABS: Beta Hydroxybutyrate 0.3 mmol/L (<0.6)
[2024-08-20 19:57] LABS: Ammonia < 10 uMol/L (11-32)
[2024-08-20 19:58] LABS: Acetaminophen < 2.0 mcg/mL (10.0-20.0); Alanine Aminotransferase 19 U/L (10-49); Albumin, Serum 3.4 gm/dL (3.4-4.8); Alcohol, Blood Medical < 3.0 mg/dL (0-10.0); Alkaline Phosphatase 183 U/L (46-116); Anion Gap 15 (7-16); Aspartate Amino Transferase 56 U/L (0-34); BUN/Creatinine Ratio 25 Ratio (12-20); Bilirubin,Total 0.6 mg/dL (0.3-1.2); Blood Urea Nitrogen 57 mg/dL (9-23); Calcium 9.1 mg/dL (8.3-10.6); Calcium (Corrected) 9.6 mg/dL (8.5-10.1); Carbon Dioxide 20.3 mMol/L (20.0-31.0); Chloride 98 mMol/L (98-107); Creatinine (Component) 2.3 mg/dL (0.6-1.3); Estimated Creatinine Clearance 19.8 mL/min (>60); Free T4 (Free Thyroxine) 1.73 ng/dL (0.89-1.76); Globulin 3.5 gm/dL (2.3-3.5); Glucose 371 mg/dL (74-106); Osmolality,Calculated 297 (275-295); Phosphorous 3.2 mg/dL (2.4-5.1); Procalcitonin 18.68 ng/ml (0.0-0.49); Salicylate < 3.0 mg/dL; Sodium 133 mMol/L (136-145); Thyroid Stimulating Hormone 1.36 uIU/mL (0.55-4.78); Total Protein 6.9 gm/dL (5.7-8.2); Troponin I < 0.020 ng/mL (0.0-0.045); eGFR 22 See Note
--- NOTE | 2024-08-20 19:58 | PRELIM_ITS ---
CT scan of the head without intravenous contrast (axial sections with sagittal and coronal reformats) August 20, 2024 1847 hours Clinical history: Altered mental status Radiation Dose: Total exam DLP 1136 mGy/cm No prior study is available for comparison. Findings: There is no evidence of intracranial hemorrhage, mass effect or midline shift. There are periventricular white matter hypodensities, compatible with chronic small vessel ischemia. There is mild volume loss. There is focal calcification in the elvia, likely representing an old calcified granuloma. Basal ganglia calcifications are present bilaterally. The calvarium is unremarkable. The mastoid air cells and the visualized paranasal sinuses are clear. Impression: No evidence of intracranial hemorrhage, mass effect or midline shift. Periventricular chronic small vessel ischemia and volume loss. Report Electronically Signed By: Yazan Liu 08/20/2024 7:57:30 PM [EST]
[2024-08-20 20:00] LABS: Base Excess -2 (-3-3); HCO3 23 mEq/L (20-26); Inspired Oxygen, FIO2 96 %; O2 Saturation 94 % (91-98); PCO2 38 mmHg (32.0-48.0); PO2 74 mmHg (83-108); pH, Arterial 7.39 (7.35-7.45)
[2024-08-20 20:02] LABS: Allen Test Performed/OK; Puncture Site Right Radial
[2024-08-20 20:05] LABS: Bilirubin,Urine Negative (Negative); Blood,Urine 3+ (Negative); Clarity,Urine Turbid (Clear/Hazy); Collection Type, Urine Catheter; Color,Urine Yellow (Lt Yel-Yel); Glucose, Urine 3+ (Negative); Hyaline Casts,Urine < 1 /hpf (0-1); Ketones,Urine Negative (Negative); Leukocyte Esterase,Urine Negative (Negative); Nitrite,Urine Negative (Negative); Protein,Urine 2+ (Neg - Trace); RBC,Urine 3 /hpf (0-3); Specific Gravity,Urine 1.018 (1.001-1.035); Squamous Epithelial Cell,Urine 1 /hpf (0-5); WBC,Urine 35 /hpf (0-5)
[2024-08-20 21:18] LABS: Amphetamine/Methamp Scrn,U Positive (Negative); Barbiturate Screen,Urine Negative (Negative); Benzodiazepines Screen,Urine Negative (Negative); Benzoylecgonine Screen, Ur Negative (Negative); Fentanyl Screen,Urine Negative (Negative); Opiate Screen,Urine Negative (Negative); THC Screen,Urine Negative (Negative)
--- NOTE | 2024-08-20 21:19 | PC.NURSE ---
Family here now. Admit Dr with pt and family now.
[2024-08-20 21:30] LABS: LDH (Lactate Dehydrogenase) 281 U/L (120-246)
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
[2024-08-20 22:17] LABS: Reflex Lactate? Y
[2024-08-20 22:34] LABS: Lactic Acid, 3 HR 2.1 mMol/L (0.4-2.0)
[2024-08-20] MEDS: RINGERS LACTATED 1000 ML 1,000 ML 75 ML IV (22:45)
[2024-08-20] MEDS: INSULIN LISPRO (AdmeLOG) 1 UNIT/0.01 ML UNIT SC (23:59)
[2024-08-21] VITALS (16 sets, daily range): BP systolic 117–195; BP diastolic 57–101; PULSE 82–108; RESP 14–97; TEMP 36.2–37.4; O2SAT 92–97; BMI 24.0
--- NOTE | 2024-08-21 00:55 | PC.LAC ---
report called to DEE Espinoza. Pt taken on clinical pharmacist to rm [phone] by myself.
[2024-08-21 02:24] LABS: Lactate (Lactic Acid) 2.5 mMol/L (0.4-2.0)
--- NOTE | 2024-08-21 04:49 | PC.NURSE ---
Assisted patient's primary nurse in inserting a new IV
[2024-08-21] MEDS: INSULIN LISPRO (AdmeLOG) 1 UNIT/0.01 ML UNIT SC ×4 (05:21→16:41)
[2024-08-21 05:24] LABS: Reflex Lactate? Y
[2024-08-21 05:42] LABS: Basophils # (Auto) 0.1 Thou/mm3 (0.0-0.2); Basophils % (Auto) 1 % (0-2.5); Eosinophils % (Auto) 0 % (0-10); Hematocrit 34.8 % (36.0-46.0); Hemoglobin 11.5 g/dL (12.0-16.0); Immature Granulocytes % (Auto) 1 % (0-0); Immature Granulocytes Auto 0.14 Thou/mm3 (0.00-0.00); Lymphocytes # (Auto) 0.6 Thou/mm3 (1.0-4.8); Lymphocytes % (Auto) 4 % (10-50); Mean Corpuscular Hemoglobin 25.5 pg (25.0-35.0); Mean Corpuscular Volume 77 fL (80-100); Monocytes # (Auto) 1.2 Thou/mm3 (0.0-0.8); Monocytes % (Auto) 8 % (0-12); Neutrophils % (Auto) 86 % (37-80); Nucleated Red Blood Cell % 0 /100 WBC (0); Platelet Count 138 Thou/mm3 (140-440); RDW Standard Deviation 39.6 fL (36.4-46.3); Red Blood Count 4.51 Miln/mm3 (4.00-5.20); White Blood Count 13.9 Thou/mm3 (3.6-11.0)
[2024-08-21 06:11] LABS: Glucose Estimated Average 292 mg/dL (80-131); Hemoglobin A1C 11.8 % Hgb (4.8-6.0)
[2024-08-21 06:13] LABS: Alanine Aminotransferase 17 U/L (10-49); Albumin, Serum 2.9 gm/dL (3.4-4.8); Alkaline Phosphatase 152 U/L (46-116); Anion Gap 11 (7-16); Aspartate Amino Transferase 41 U/L (0-34); BUN/Creatinine Ratio 39 Ratio (12-20); Bilirubin,Total 0.4 mg/dL (0.3-1.2); Blood Urea Nitrogen 58 mg/dL (9-23); Calcium (Corrected) 8.9 mg/dL (8.5-10.1); Carbon Dioxide 23.8 mMol/L (20.0-31.0); Chloride 100 mMol/L (98-107); Creatine Kinase 434 U/L (34-171); Creatinine (Component) 1.5 mg/dL (0.6-1.3); Estimated Creatinine Clearance 30.6 mL/min (>60); Globulin 2.8 gm/dL (2.3-3.5); Glucose 334 mg/dL (74-106); Magnesium 1.8 mg/dL (1.6-2.6); Osmolality,Calculated 299 (275-295); Phosphorous 3.1 mg/dL (2.4-5.1); Potassium 3.3 mMol/L (3.4-5.1); Sodium 135 mMol/L (136-145); Total Protein 5.7 gm/dL (5.7-8.2); eGFR 37 See Note
[2024-08-21 07:13] LABS: Lactic Acid, 3 HR 2.2 mMol/L (0.4-2.0)
--- NOTE | 2024-08-21 08:33 | PC.NURSE ---
Call for platelet of [phone]. ok to give the heparin
[2024-08-21] MEDS: PANTOPRAZOLE INJ 40 MG VIAL IVP (08:42)
[2024-08-21] MEDS: SENNA TABLET 1 TAB PO (08:42)
[2024-08-21] MEDS: POTASSIUM CHLORIDE 20 mEq TABCR 40 MEQ PO (08:43)
[2024-08-21] MEDS: INSULIN GLARGINE (Lantus) 5 UNIT/0.05 ML (PER 5 UNITS) 10 UNIT SC (08:43)
[2024-08-21] MEDS: HEPARIN SOD INJ 5000 UNIT/ML VIAL SC ×2 (08:43→20:54)
--- NOTE | 2024-08-21 09:47 | XR_ITS ---
Examination: Left foot 2 views Technique: AP lateral left foot 2 views Exam date and time: August 15, 2024 1013 hrs. Indications: Redness swelling and pain involving the left foot this week Findings: Intra-articular fracture distal aspect proximal phalanx first digit Severe osteopenia Fracture deformity distal aspect proximal phalanx third digit Severe focal osteopenia middle and distal phalanges fifth digit Impression: Intra-articular fracture distal aspect proximal phalanx first digit Age indeterminate fracture deformity distal aspect proximal phalanx fifth digit Severe osteopenia, focal, middle and distal phalanges third digit MRI left foot without contrast follow-up would best assess for osteomyelitis fifth digit
[2024-08-21] MEDS: LIDOCAINE 5% 1 PATCH TOP (09:51)
[2024-08-21] MEDS: RINGERS LACTATED 1000 ML 1,000 ML 75 ML IV (09:55)
[2024-08-21 10:21] LABS: C-Reactive Protein 27.3 mg/dL (0.0-0.9)
[2024-08-21 10:40] LABS: Sed Rate (ESR) 65 mm/hr (0-30)
--- NOTE | 2024-08-21 11:11 | PD.RESPRO ---
Documentation for date of: 08/21/24 Subjective Subjective Interval history: Patient was seen at bedside this morning. No overnight events. Patient was AO x 2 today (not to time). Patient was enjoying her breakfast and seemed a little bit more alert and awake today, but she still has a blank stare and was still very slow to respond. She did mention that she took more of her baclofen than the prescribed dose. She stated that she had some back pain therefore gave patient a lidocaine patch, will refrain from pain medications due to patient's current mental status. Patient's blood sugars have been very elevated therefore we will add Lantus 10 units daily. Also ordered ESR, CRP, and chest x-ray of the left foot to rule out any osteomyelitis. No other complaints at this time. Exam Vital Signs Temp Pulse Resp BP Pulse Ox O2 Del Method 98.2 F 91 14 136/63 H 95 Room Air 08/21/24 08:00 08/21/24 08:00 08/21/24 08:00 08/21/24 08:00 08/21/24 08:00 08/21/24 08:00 Narrative Exam General: A/O x2 (not to time), no acute distress, more alert/awake Eyes: PERRL, EOMI. Anicteric, vision grossly intact. Ears: No ear pain, no ear discharge, Hearing grossly intact. Nose: No nasal discharge. Mouth/Throat: Moist mucous membranes, no redness, no lesions. Neck: Neck supple, non-tender, no cervical lymphadenopathy. Lungs: Clear OSMANI to auscultation and percussion, No accessory muscle use. Cardio: Normal S1/S2, regular rhythm, no murmurs, no JVD or carotid bruits. Abdomen: Soft, non-tender, no palpable masses, peristalsis present, no guarding or rebound. Extremities: Symmetrical, no significant deformities, no peripheral edema , non-tender, peripheral pulses presents. Skin: No rashes, no lesions, warm to touch. L great toe swollen with discoloration Neuro: Able to follow commands but with slow response, A/Ox2 (not to time), motor and sensory intact. Objective Labs 08/22/24 04:44 08/22/24 04:44 Labs: Laboratory Results - last 24 hr 08/20/24 08/20/24 08/20/24 18:33 19:11 19:12 WBC 18.1 H RBC 5.13 Hgb 13.4 Hct 39.7 MCV 77 L MCH 26.1 MCHC 33.8 RDW Std Deviation 39.0 Plt Count 152 Neut % (Auto) 90 H Lymph % (Auto) 2 L [place] % (Auto) 7 Eos % (Auto) 0 Baso % (Auto) 1 Neut # (Auto) 16.3 H Lymph # (Auto) 0.3 L [place] # (Auto) 1.3 H Eos # (Auto) 0.0 Baso # (Auto) 0.1 Immature Gran # (Auto) 0.12 H Absolute Nucleated RBC 0.00 Immature Gran % 1 H Nucleated RBC % 0 ESR PT 12.9 H INR 1.2 APTT 29.4 Puncture Site ABG pH ABG pCO2 ABG pO2 ABG HCO3 ABG O2 Saturation ABG Base Excess FiO2 Sodium 133 L Potassium 4.0 Chloride 98 Carbon Dioxide 20.3 Anion Gap 15 BUN 57 H Creatinine 2.3 H Estim Creat Clear Calc 19.8 L eGFR 22 L BUN/Creatinine Ratio 25 H Glucose [address] Glu mg/dL Hemoglobin A1c Calculated Osmolality 297 H Lactic Acid 2.8 H Calcium 9.1 Corrected Calcium 9.6 Phosphorus 3.2 Magnesium 2.0 Total Bilirubin 0.6 AST 56 H ALT 19 Alkaline Phosphatase 183 H Ammonia < 10 L Lactate Dehydrogenase 281 H Total Creatine Kinase Troponin I < 0.020 C-Reactive Prot, Quant Total Protein 6.9 Albumin 3.4 Globulin 3.5 Albumin/Globulin Ratio 1.0 L Folate Beta-Hydroxybutyrate/Acetoacetate 0.3 Procalcitonin 18.68 H TSH 1.36 Free T4 1.73 Ur Collection Type Catheter Urine Color Yellow Urine Clarity Turbid A Urine pH 6.0 Ur Specific [place] 1.018 Urine Protein 2+ A Urine Glucose (UA) 3+ A Urine Ketones Negative Urine Blood 3+ A Urine Nitrite Negative Urine Bilirubin Negative Urine Urobilinogen (Auto) 3.0 Ur Leukocyte Esterase Negative Urine RBC 3 Urine WBC 35 H Ur Squamous Epith Cells 1 Urine Bacteria None Hyaline Casts < 1 Salicylates < 3.0 Urine Opiates Screen Urine Fentanyl Screen Acetaminophen < 2.0 L Ur Barbiturates Screen U Amphetamin/Meth Scrn U Benzodiazepines Scrn U Cocaine Metab Screen U Marijuana (THC) Screen Ethyl Alcohol < 3.0 08/20/24 08/20/24 08/20/24 19:48 19:56 22:22 WBC RBC Hgb Hct MCV MCH MCHC RDW Std Deviation Plt Count Neut % (Auto) Lymph % (Auto) [place] % (Auto) Eos % (Auto) Baso % (Auto) Neut # (Auto) Lymph # (Auto) [place] # (Auto) Eos # (Auto) Baso # (Auto) Immature Gran # (Auto) Absolute Nucleated RBC Immature Gran % Nucleated RBC % ESR PT INR APTT Puncture Site Right Radial ABG pH 7.39 ABG pCO2 38 ABG pO2 74 L ABG HCO3 23 ABG O2 Saturation 94 ABG Base Excess -2 FiO2 96 Sodium Potassium Chloride Carbon Dioxide Anion Gap BUN Creatinine Estim Creat Clear Calc eGFR BUN/Creatinine Ratio Glucose Estimated Ave Glu mg/dL Hemoglobin A1c Calculated Osmolality Lactic Acid 2.1 H Calcium Corrected Calcium Phosphorus Magnesium Total Bilirubin AST ALT Alkaline Phosphatase Ammonia Lactate Dehydrogenase Total Creatine Kinase Troponin I C-Reactive Prot, Quant Total Protein Albumin Globulin Albumin/Globulin Ratio Folate Beta-Hydroxybutyrate/Acetoacetate Procalcitonin TSH Free T4 Ur Collection Type Urine Color Urine Clarity Urine pH Ur Specific [place] Urine Protein Urine Glucose (UA) Urine Ketones Urine Blood Urine Nitrite Urine Bilirubin Urine Urobilinogen (Auto) Ur Leukocyte Esterase Urine RBC Urine WBC Ur Squamous Epith Cells Urine Bacteria Hyaline Casts Salicylates Urine Opiates Screen Negative Urine Fentanyl Screen Negative Acetaminophen Ur Barbiturates Screen Negative U Amphetamin/Meth Scrn Positive A U Benzodiazepines Scrn Negative U Cocaine Metab Screen Negative U Marijuana (THC) Screen Negative Ethyl Alcohol 08/21/24 08/21/24 08/21/24 02:00 04:40 06:58 WBC 13.9 H RBC 4.51 Hgb 11.5 L Hct 34.8 L MCV 77 L MCH 25.5 MCHC 33.0 RDW Std Deviation 39.6 Plt Count 138 L Neut % (Auto) 86 H Lymph % (Auto) 4 L [place] % (Auto) 8 Eos % (Auto) 0 Baso % (Auto) 1 Neut # (Auto) 12.0 H Lymph # (Auto) 0.6 L [place] # (Auto) 1.2 H Eos # (Auto) 0.0 Baso # (Auto) 0.1 Immature Gran # (Auto) 0.14 H Absolute Nucleated RBC 0.00 Immature Gran % 1 H Nucleated RBC % 0 ESR 65 H PT INR APTT Puncture Site ABG pH ABG pCO2 ABG pO2 ABG HCO3 ABG O2 Saturation ABG Base Excess FiO2 Sodium 135 L Potassium 3.3 L D Chloride 100 Carbon Dioxide 23.8 Anion Gap 11 BUN 58 H Creatinine 1.5 H D Estim Creat Clear Calc 30.6 L eGFR 37 L BUN/Creatinine Ratio 39 H Glucose [address] Glu mg/dL 292 H Hemoglobin A1c 11.8 H Calculated Osmolality 299 H Lactic Acid 2.5 H 2.2 H Calcium 8.0 L Corrected Calcium 8.9 Phosphorus 3.1 Magnesium 1.8 Total Bilirubin 0.4 AST 41 H ALT 17 Alkaline Phosphatase 152 H D Ammonia Lactate Dehydrogenase Total Creatine Kinase 434 H Troponin I C-Reactive Prot, Quant 27.3 H Total Protein 5.7 Albumin 2.9 L D Globulin 2.8 Albumin/Globulin Ratio 1.0 L Folate 4.33 L Beta-Hydroxybutyrate/Acetoacetate Procalcitonin TSH Free T4 Ur Collection Type Urine Color Urine Clarity Urine pH Ur Specific [place] Urine Protein Urine Glucose (UA) Urine Ketones Urine Blood Urine Nitrite Urine Bilirubin Urine Urobilinogen (Auto) Ur Leukocyte Esterase Urine RBC Urine WBC Ur Squamous Epith Cells Urine Bacteria Hyaline Casts Salicylates Urine Opiates Screen Urine Fentanyl Screen Acetaminophen Ur Barbiturates Screen U Amphetamin/Meth Scrn U Benzodiazepines Scrn U Cocaine Metab Screen U Marijuana (THC) Screen Ethyl Alcohol ABG Interpretation ABG results: 08/20/24 19:56 ABG pH 7.39 ABG pCO2 38 ABG pO2 74 L ABG HCO3 23 ABG O2 Saturation 94 ABG Base Excess -2 Quality Measures Quality Measures none Advance care planning discussed with:: patient Assessment & Plan Assessment Current Active Medications: Generic Name Dose Route Start Last Admin Trade Name Freq PRN Reason Stop Dose Admin Acetaminophen 650 mg 08/20/24 21:34 Acetaminophen 325 Mg Tablet PO 09/19/24 21:33 Q6H PRN Fever >101.5 Acetaminophen 650 mg 08/20/24 21:34 Acetaminophen Supp 650 Mg Supp [place] 09/19/24 21:33 Q6H PRN PAIN SCALE 1-3 (mild Dextrose 25 ml 08/20/24 21:39 Dextrose 50%-Water Inj 50 Ml Syringe IV 09/19/24 21:38 Q15MIN PRN BG 50-70 responsive npo pt Dextrose 50 ml 08/20/24 21:39 Dextrose 50%-Water Inj 50 Ml Syringe IV 09/19/24 21:38 Q15MIN PRN BG <50 OR BG <70 & pt unresponsive Glucagon 1 mg 08/20/24 21:39 Glucagon Inj 1 Mg Vial IM Q15MIN PRN BG <70, and no IV access Heparin Sodium (Porcine) 5,000 unit 08/21/24 09:00 08/21/24 08:43 Heparin Sod Inj 5000 Unit/Ml Vial SC 09/04/24 08:59 5,000 unit Q12H KALPESH Administration Lactated Ringer's 1,000 mls @ 75 mls/hr 08/20/24 21:45 08/21/24 09:55 Lactated Ringers IV 09/19/24 21:44 75 mls/hr .[id number] KALPESH Administration Ceftriaxone Sodium/Dextrose 50 mls @ 100 mls/hr 08/21/24 21:00 Rocephin/D5w 1gm Iv Premix IV 08/28/24 20:59 HS [facility] Insulin Glargine 10 unit 08/21/24 09:00 08/21/24 08:43 Insulin Glargine (Lantus) 5 Unit/0.05 Ml (Per 5 Units) SC 09/20/24 08:59 10 unit QDAY KALPESH Administration Insulin Human Lispro 0 unit 08/21/24 07:30 08/21/24 07:25 Insulin Lispro (Admelog) 1 Unit/0.01 Ml Unit SC 09/20/24 07:29 5 unit AC KALPESH Administration Protocol Ondansetron HCl 4 mg 08/20/24 21:34 Ondansetron Inj 2 Mg/Ml Inj 2 Ml IV 09/19/24 21:33 Q6H PRN NAUSEA OR VOMITING Protocol Pantoprazole Sodium 40 mg 08/21/24 09:00 08/21/24 08:42 Pantoprazole Inj 40 Mg Vial IVP 09/20/24 08:59 40 mg QDAY KALPESH Administration Sennosides 1 tab 08/21/24 09:00 08/21/24 08:42 Senna Tablet PO 09/20/24 08:59 1 tab QDAY KALPESH Administration Protocol Plan 69-year-old female with past medical history of of DM2, diabetic nephropathy, hypertension, and diabetic foot was admitted to the hospital on 08/20/2024 due to acute encephalopathy likely in the setting of infectious versus metabolic versus toxic etiology given the positive U tox for meth and try to increase use of baclofen. #Acute cephalopathy, infectious versus metabolic versus toxic #Diabetic foot #Meth use #Medication overdose #Lactic acidosis ? Patient initially came in with altered mental status and was found by her roommate who stated that for the last 3 days prior to admission the patient was in bed. ? Patient recently was started on baclofen as per patient she took more than the prescribed dose in the past few days. ?Patient has left diabetic foot ?DDx infectious in the setting of diabetic foot versus metabolic versus toxic could be due to meth use along with baclofen or to elevated blood sugars ? U tox was also positive for meth ? Lactic acid 2.8 on admission and 2.2 this morning ?ESR 65 and CRP 27.33 -A/Ox2 today Plan: ?IV fluids ?Will continue with Rocephin [08/21/2024?] ? x-ray of left foot showed changes consistent with possible osteomyelitis, patient follows up with outpatient wound care ?Trend lactic acid ?Pending blood and urine cultures ?Wound care ordered ?Will continue to monitor #Uncontrolled DM2 # Hyperglycemia ? A1c 11.8 08/2024 Plan: ? Insulin glargine 10 units daily ? ISS ? Accu-Cheks hypoglycemia protocol ordered ? Continue monitor #FRANK ? Patient initially came in with creatinine of 2.3 and down trended to 1.5 today ? Patient's baseline creatinine 1.3 Plan: ? IV fluids ? Renal dose medication ? Avoid nephrotoxic agents ?Will continue to monitor #Electrolyte imbalance #Hypokalemia ? Patient's potassium was 3.7 today Plan: ? 40 mg of potassium x 1 today ? Will replete as necessary #Microcytic normochromic anemia ? Hemoglobin 11.5 today ? Hemoglobin on admission 13.4 ? Most likely hemodilutional given the patient got IV fluids ? Will transfuse hemoglobin less than 7 ? Will continue to monitor #Pyuria ? Patient's UA was positive for WBCs ? Patient does not have any symptoms nor bacteria in the urine ? Will continue to monitor Disposition: Patient pending cultures, continue Abx. Diet: carb consistent + dysphagia 3 GI prophylaxis: protonix DVT prophylaxis: heparin sc Code: full Case disclosed with Attending Dr. Nick Quiros PGY1 Attending Provider Attestation/Addendum I, Valentina Romero DO, attest that I was physically present for the lewis portions of the service and evaluated the patient with the resident and I reviewed and discussed the case with the resident and agree with the resident's findings and plans of care as documented above Patient seen and evaluated this AM. She is slow to respond to questions, but able to answer appropriately. She is currently A&Ox2. Patient likely encephalopathic 2/2 polysubstance use. Patient denies any alcohol use. She states she lives with her friend Shantelle who found her to be out of it for three days. She denies any shortness of breath or chest pain. History was limited due to patient's somnolence. Will f/u with cultures and continue with IV hydration and abx. Monitor for withdrawals.
--- NOTE | 2024-08-21 11:27 | PC.SS ---
This is 69-year-old, , single female who presented to the ED for altered mental status. Patient appeared alert and oriented to self, place and situation. However, she appeared intermittently confused. Patient was guarded, her mood and behavior were ordinary. Patient reported that she resides in a home with her friend, Shantelle. Prior to admission, patient was independent with all ADLs, no DME use. Patient reported using methamphetamines on a daily basis by smoking it. Patient uses methamphetamine for her back pain. Patient does not have a PCP. Discharge plan is unclear at this time. SS to reassess.
--- NOTE | 2024-08-21 15:45 | PC.NURSE ---
pt. BP 193/101 HR 104 . PT sleepy and lethargic but aware she is in hospital. made notified. Per he is going to order the MED for BP for pt.
[2024-08-21] MEDS: cloNIDine HCL 0.1 MG TABLET PO (15:46)
--- NOTE | 2024-08-21 16:05 | PC.NURSE ---
PT. blood pressure is 191/99 . HR 105. BG 309. call the rapid on the pt
--- NOTE | 2024-08-21 16:11 | EKG_ITS ---
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
[2024-08-21] MEDS: LABETALOL INJ 5 MG/ML VIAL 20 ML IVP (16:32)
--- NOTE | 2024-08-21 16:41 | PD.RESEVENT ---
Documentation for date of: 08/21/24 Event Note Event Note: Rapid response was called this afternoon around 4:20 PM due to high blood pressure in the 190s over 90s. Patient at this time was also very lethargic and somnolent, but no focal neurological deficits were appreciated at this time strength OSMANI UE equal and able to move all extremities. Patient is lethargy could be from metabolic versus toxic etiology at this time as she was arousable to sternal rub and was able to follow commands. Patient's pupils were dilated and were responsive to light. There was no nasal fold flattening on examination. Heart rate was tachycardic but regular. Order EKG at this time which did not show any acute ST changes and only showed sinus tachycardia. Patient did not complain of chest pain. Given patient's high blood pressure ordered labetalol 5 mg IV x 1. Goal is to decrease blood pressure by 25% with a goal of 150-170 SBP. Also order lactic acid at this time. Patient's son was at bedside and all questions and doubts were answered. Case disclosed with Attending Dr. Nick Quiros PGY1
--- NOTE | 2024-08-21 16:47 | PC.NURSE ---
PT. BP after the labtalol recheck 162/90, HR 102. PT. is sleeping at this moment. Not complaing of pain anywhere.
--- NOTE | 2024-08-21 17:49 | PC.NURSE ---
call received from LAB on pt. blood culture and MD been reported on Pt. blood culture positive for gram cooci in 1 bottle
[2024-08-21] MEDS: cefTRIAXone/D5w 1gm IV premix 50 ML IV (20:53)
[2024-08-21 20:59] LABS: Lactate (Lactic Acid) 1.7 mMol/L (0.4-2.0)
[2024-08-21 23:01] LABS: Vitamin B12 721 pg/mL (211-911)
[2024-08-22] VITALS (11 sets, daily range): BP systolic 145–191; BP diastolic 60–92; PULSE 73–90; RESP 15–94; TEMP 36.1–37.6; O2SAT 92–96; BMI 23.9
[2024-08-22 00:51] LABS: Lactate (Lactic Acid) 1.7 mMol/L (0.4-2.0)
[2024-08-22] MEDS: RINGERS LACTATED 1000 ML 1,000 ML 75 ML IV (00:57)
[2024-08-22] MEDS: ACETAMINOPHEN 325 MG TABLET 650 MG PO ×3 (02:23→22:39)
[2024-08-22 05:37] LABS: Basophils % (Auto) 0 % (0-2.5); Eosinophils % (Auto) 0 % (0-10); Hematocrit 30.5 % (36.0-46.0); Hemoglobin 10.2 g/dL (12.0-16.0); Immature Granulocytes % (Auto) 1 % (0-0); Immature Granulocytes Auto 0.12 Thou/mm3 (0.00-0.00); Lymphocytes # (Auto) 1.4 Thou/mm3 (1.0-4.8); Lymphocytes % (Auto) 11 % (10-50); Mean Corpuscular HGB Conc 33.4 g/dl (31.0-37.0); Mean Corpuscular Hemoglobin 25.7 pg (25.0-35.0); Mean Corpuscular Volume 77 fL (80-100); Monocytes # (Auto) 2.6 Thou/mm3 (0.0-0.8); Monocytes % (Auto) 19 % (0-12); Neutrophils # (Auto) 9.4 Thou/mm3 (1.8-7.7); Neutrophils % (Auto) 69 % (37-80); Nucleated Red Blood Cell % 0 /100 WBC (0); Platelet Count 123 Thou/mm3 (140-440); RDW Standard Deviation 40.5 fL (36.4-46.3); Red Blood Count 3.97 Miln/mm3 (4.00-5.20); White Blood Count 13.6 Thou/mm3 (3.6-11.0)
[2024-08-22 07:18] LABS: Alanine Aminotransferase 15 U/L (10-49); Albumin, Serum 2.6 gm/dL (3.4-4.8); Alkaline Phosphatase 126 U/L (46-116); Anion Gap 7 (7-16); Aspartate Amino Transferase 27 U/L (0-34); BUN/Creatinine Ratio 42 Ratio (12-20); Bilirubin,Total 0.4 mg/dL (0.3-1.2); Blood Urea Nitrogen 50 mg/dL (9-23); Calcium 7.8 mg/dL (8.3-10.6); Calcium (Corrected) 8.9 mg/dL (8.5-10.1); Carbon Dioxide 24.3 mMol/L (20.0-31.0); Chloride 100 mMol/L (98-107); Creatinine (Component) 1.2 mg/dL (0.6-1.3); Estimated Creatinine Clearance 38.2 mL/min (>60); Globulin 2.5 gm/dL (2.3-3.5); Glucose 355 mg/dL (74-106); Magnesium 1.9 mg/dL (1.6-2.6); Osmolality,Calculated 289 (275-295); Phosphorous 2.5 mg/dL (2.4-5.1); Potassium 3.9 mMol/L (3.4-5.1); Sodium 131 mMol/L (136-145); Total Protein 5.1 gm/dL (5.7-8.2); eGFR 49 See Note
[2024-08-22] MEDS: INSULIN LISPRO (AdmeLOG) 1 UNIT/0.01 ML UNIT SC ×3 (07:38→17:53)
[2024-08-22] MEDS: PANTOPRAZOLE INJ 40 MG VIAL IVP (08:35)
[2024-08-22] MEDS: SENNA TABLET 1 TAB PO (08:36)
[2024-08-22] MEDS: INSULIN GLARGINE (Lantus) 5 UNIT/0.05 ML (PER 5 UNITS) 18 UNIT SC (08:37)
[2024-08-22] MEDS: HEPARIN SOD INJ 5000 UNIT/ML VIAL SC ×2 (08:38→22:00)
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
[2024-08-22] MEDS: INSULIN LISPRO (AdmeLOG) 1 UNIT/0.01 ML UNIT 5 UNIT SC ×2 (11:58→17:54)
[2024-08-22] MEDS: LIDOCAINE 5% 1 PATCH TOP (13:57)
[2024-08-22 15:00] LABS: Path Review Blood Smear Sent to Pathologist
[2024-08-22] MEDS: LOSARTAN POTASSIUM 25 MG TABLET PO (15:03)
--- NOTE | 2024-08-22 15:17 | PC.CC ---
Request per rounding for CGM + [place]. Both ordered from [facility] during patient's admission in June. S/W Ankit @ [facility] who advised Rx on hold since July due to not being able to reach patient. Rx re-activated by [facility], Electrical Apprentice is Ed[employer]. Met w/ patient at bedside and explained that patient has available supplies at [facility] as well as role of CGM system. Provided patient with contact for Hawa[facility] @ [facility] and advised patient to call. Also advised patient to answer phone calls as [facility] will attempt to reach her again to set up shipment. Updated FATOUMATA Taylor.
[2024-08-22] MEDS: cefTRIAXone 1,000 MG in SODIUM CHLORIDE 0.9% (P) 50 ML 100 MG IV (20:33)
[2024-08-22] MEDS: hydrALAZINE INJ 20 MG/ML VIAL 10 MG IV (20:35)
--- NOTE | 2024-08-22 21:12 | PC.NURSE ---
re home med rec- Advised son and daughter in law to bring med bottles from home for verification. Per pt takes gabapentin at home, dose needs verification.
--- NOTE | 2024-08-22 21:16 | PC.NURSE ---
T=99.6- cooling measures applied.
[2024-08-23] VITALS (13 sets, daily range): BP systolic 138–189; BP diastolic 63–106; PULSE 66–90; RESP 16–96; TEMP 36.5–37.2; O2SAT 92–97
[2024-08-23] MEDS: HYDROcodone/APAP 5/325 TABLET 1 TAB PO ×2 (00:14→20:17)
[2024-08-23 05:25] LABS: Basophils # (Auto) 0.1 Thou/mm3 (0.0-0.2); Basophils % (Auto) 1 % (0-2.5); Eosinophils # (Auto) 0.1 Thou/mm3 (0.0-0.5); Eosinophils % (Auto) 1 % (0-10); Hematocrit 31.5 % (36.0-46.0); Hemoglobin 10.5 g/dL (12.0-16.0); Immature Granulocytes % (Auto) 1 % (0-0); Immature Granulocytes Auto 0.16 Thou/mm3 (0.00-0.00); Lymphocytes # (Auto) 2.3 Thou/mm3 (1.0-4.8); Lymphocytes % (Auto) 14 % (10-50); Mean Corpuscular HGB Conc 33.3 g/dl (31.0-37.0); Mean Corpuscular Hemoglobin 25.7 pg (25.0-35.0); Mean Corpuscular Volume 77 fL (80-100); Monocytes # (Auto) 2.2 Thou/mm3 (0.0-0.8); Monocytes % (Auto) 14 % (0-12); Neutrophils # (Auto) 11.1 Thou/mm3 (1.8-7.7); Neutrophils % (Auto) 70 % (37-80); Nucleated Red Blood Cell % 0 /100 WBC (0); Platelet Count 143 Thou/mm3 (140-440); RDW Standard Deviation 40.6 fL (36.4-46.3); Red Blood Count 4.09 Miln/mm3 (4.00-5.20); White Blood Count 15.9 Thou/mm3 (3.6-11.0)
[2024-08-23 06:30] LABS: Alanine Aminotransferase 13 U/L (10-49); Albumin, Serum 2.6 gm/dL (3.4-4.8); Alkaline Phosphatase 137 U/L (46-116); Anion Gap 5 (7-16); Aspartate Amino Transferase 23 U/L (0-34); BUN/Creatinine Ratio 37 Ratio (12-20); Bilirubin,Total 0.5 mg/dL (0.3-1.2); Blood Urea Nitrogen 33 mg/dL (9-23); Calcium 8.2 mg/dL (8.3-10.6); Calcium (Corrected) 9.3 mg/dL (8.5-10.1); Carbon Dioxide 23.7 mMol/L (20.0-31.0); Chloride 100 mMol/L (98-107); Creatinine (Component) 0.9 mg/dL (0.6-1.3); Estimated Creatinine Clearance 50.9 mL/min (>60); Globulin 2.7 gm/dL (2.3-3.5); Glucose 219 mg/dL (74-106); Magnesium 1.7 mg/dL (1.6-2.6); Osmolality,Calculated 273 (275-295); Phosphorous 2.5 mg/dL (2.4-5.1); Potassium 3.9 mMol/L (3.4-5.1); Sodium 129 mMol/L (136-145); Total Protein 5.3 gm/dL (5.7-8.2); eGFR > 60 See Note
[2024-08-23] MEDS: INSULIN LISPRO (AdmeLOG) 1 UNIT/0.01 ML UNIT 5 UNIT SC (07:36)
[2024-08-23] MEDS: INSULIN LISPRO (AdmeLOG) 1 UNIT/0.01 ML UNIT SC ×2 (07:36→11:44)
[2024-08-23] MEDS: SENNA TABLET 1 TAB PO (08:32)
[2024-08-23] MEDS: LOSARTAN POTASSIUM 25 MG TABLET PO ×2 (08:33→10:14)
[2024-08-23] MEDS: ACETAMINOPHEN 325 MG TABLET 650 MG PO ×3 (08:33→23:30)
[2024-08-23] MEDS: INSULIN GLARGINE (Lantus) 5 UNIT/0.05 ML (PER 5 UNITS) 22 UNIT SC (08:34)
[2024-08-23] MEDS: HEPARIN SOD INJ 5000 UNIT/ML VIAL SC ×2 (08:34→21:28)
[2024-08-23] MEDS: PANTOPRAZOLE INJ 40 MG VIAL IVP (08:36)
--- NOTE | 2024-08-23 11:40 | ESPR_ITS ---
<Statement entered by Vani Delarosa MD - 08/23/24 13:35> I discussed with and supervised my co-resident involved in the care of this patient. I agree with the assessment and plan as documented above. Patient seen at bedside. Afebrile overnight. Labs show pseudohyponatremia, hyperglycemia. Cultures grew GPC in 1 out 2 bottle. Will follow cultures, continue IV antibiotics and increase her long-acting insulin. When ready for discharge, patient to go home with home health. Anticipate in the next 48 hours pending cultures. Vani Delarosa MD PGY-3 Documentation for date of: 08/23/24 Subjective Subjective Interval history: Patient was seen at bedside this morning. No overnight events. Patient's blood sugar still. Elevated in the morning therefore adjusted her insulin regimen to glargine 22, lispro 7 3 times daily with meals, and sliding scale on top. Patient blood pressure has also been elevated therefore will increase patient's losartan to 50 mg daily. Patient's blood cultures did grow GPC's, will wait for sensitivity to these blood cultures as patient's WBC did uptrend. Will continue monitor for now. Exam Vital Signs Temp Pulse Resp BP Pulse Ox O2 Del Method 97.7 F 69 16 158/86 H 94 L Room Air 08/23/24 08:00 08/23/24 10:14 08/23/24 08:00 08/23/24 10:14 08/23/24 08:00 08/23/24 08:00 Narrative Exam General: A/O x3, no acute distress Eyes: PERRL, EOMI. Anicteric, vision grossly intact. Ears: No ear pain, no ear discharge, Hearing grossly intact. Nose: No nasal discharge. Mouth/Throat: Moist mucous membranes, no redness, no lesions. Neck: Neck supple, non-tender, no cervical lymphadenopathy. Lungs: Clear OSMANI to auscultation and percussion, No accessory muscle use. Cardio: Normal S1/S2, regular rhythm, no murmurs, no JVD or carotid bruits. Abdomen: Soft, non-tender, no palpable masses, peristalsis present, no guarding or rebound. Extremities: Symmetrical, no significant deformities, no peripheral edema , non-tender, peripheral pulses presents. Skin: No rashes, no lesions, warm to touch. L great toe swollen and ulcer in upper plantar area. Neuro: No focal neurological deficits, motor and sensory intact. Objective Labs 08/24/24 04:40 08/24/24 04:40 Labs: Laboratory Results - last 24 hr 08/22/24 08/23/24 04:44 04:07 WBC 15.9 H RBC 4.09 Hgb 10.5 L Hct 31.5 L MCV 77 L MCH 25.7 MCHC 33.3 RDW Std Deviation 40.6 Plt Count 143 Neut % (Auto) 70 Lymph % (Auto) 14 [place] % (Auto) 14 H Eos % (Auto) 1 Baso % (Auto) 1 Neut # (Auto) 11.1 H Lymph # (Auto) 2.3 [place] # (Auto) 2.2 H Eos # (Auto) 0.1 Baso # (Auto) 0.1 Immature Gran # (Auto) 0.16 H Absolute Nucleated RBC 0.00 Immature Gran % 1 H Nucleated RBC % 0 Smear Path Review Sent to Pathologist Sodium 129 L Potassium 3.9 Chloride 100 Carbon Dioxide 23.7 Anion Gap 5 L BUN 33 H Creatinine 0.9 Estim Creat Clear Calc 50.9 L eGFR > 60 BUN/Creatinine Ratio 37 H Glucose 219 H D Calculated Osmolality 273 L Calcium 8.2 L Corrected Calcium 9.3 Phosphorus 2.5 Magnesium 1.7 Total Bilirubin 0.5 AST 23 ALT 13 Alkaline Phosphatase 137 H Total Protein 5.3 L Albumin 2.6 L Globulin 2.7 Albumin/Globulin Ratio 1.0 L ABG Interpretation ABG results: 08/20/24 19:56 ABG pH 7.39 ABG pCO2 38 ABG pO2 74 L ABG HCO3 23 ABG O2 Saturation 94 ABG Base Excess -2 Quality Measures Quality Measures none Advance care planning discussed with:: patient Assessment & Plan Assessment Current Active Medications: Generic Name Dose Route Start Last Admin Trade Name Freq PRN Reason Stop Dose Admin Acetaminophen 650 mg 08/20/24 21:34 Acetaminophen 325 Mg Tablet PO 09/19/24 21:33 Q6H PRN Fever >101.5 Acetaminophen 650 mg 08/22/24 02:10 08/23/24 08:33 Acetaminophen 325 Mg Tablet PO 09/21/24 02:06 650 mg Q6HR PRN Administration PAIN Dextrose 25 ml 08/20/24 21:39 Dextrose 50%-Water Inj 50 Ml Syringe IV 09/19/24 21:38 Q15MIN PRN BG 50-70 responsive npo pt Dextrose 50 ml 08/20/24 21:39 Dextrose 50%-Water Inj 50 Ml Syringe IV 09/19/24 21:38 Q15MIN PRN BG <50 OR BG <70 & pt unresponsive Glucagon 1 mg 08/20/24 21:39 Glucagon Inj 1 Mg Vial IM Q15MIN PRN BG <70, and no IV access Heparin Sodium (Porcine) 5,000 unit 08/21/24 09:00 08/23/24 08:34 Heparin Sod Inj 5000 Unit/Ml Vial SC 09/04/24 08:59 5,000 unit Q12H [facility] Administration Ceftriaxone Sodium 1,000 mg/ 50 mls @ 100 mls/hr 08/22/24 21:00 08/22/24 20:33 Sodium Chloride IV 08/28/24 20:59 100 mls/hr HS [facility] Administration Insulin Glargine 22 unit 08/23/24 09:00 08/23/24 08:34 Insulin Glargine (Lantus) 5 Unit/0.05 Ml (Per 5 Units) CT 09/22/24 08:59 22 unit QDAY [facility] Administration Insulin Human Lispro 0 unit 08/22/24 14:34 08/23/24 07:36 Insulin Lispro (Admelog) 1 Unit/0.01 Ml Unit SC 09/20/24 07:29 3 unit [facility] Administration Protocol Insulin Human Lispro 7 unit 08/23/24 11:30 Insulin Lispro (Admelog) 1 Unit/0.01 Ml Unit SC 09/22/24 11:29 [facility] Losartan Potassium 50 mg 08/24/24 09:00 Losartan Potassium 25 Mg Tablet PO 09/23/24 08:59 QDAY [facility] Ondansetron HCl 4 mg 08/20/24 21:34 Ondansetron Inj 2 Mg/Ml Inj 2 Ml IV 09/19/24 21:33 Q6H PRN NAUSEA OR VOMITING Protocol Pantoprazole Sodium 40 mg 08/21/24 09:00 08/23/24 08:36 Pantoprazole Inj 40 Mg Vial IVP 09/20/24 08:59 40 mg QDAY [facility] Administration Sennosides 1 tab 08/21/24 09:00 08/23/24 08:32 Senna Tablet PO 09/20/24 08:59 1 tab QDAY [facility] Administration Protocol Plan 69-year-old female with past medical history of of DM2, diabetic nephropathy, hypertension, and diabetic foot was admitted to the hospital on 08/20/2024 due to acute encephalopathy likely in the setting of infectious versus metabolic versus toxic etiology given the positive U tox for meth and try to increase use of baclofen. #Acute cephalopathy, infectious versus metabolic versus toxic #Diabetic foot #Meth use #Medication overdose #Lactic acidosis #GPC bacteremia? ? Patient initially came in with altered mental status and was found by her roommate who stated that for the last 3 days prior to admission the patient was in bed. ? Patient recently was started on baclofen as per patient she took more than the prescribed dose in the past few days. ?Patient has left diabetic foot ?DDx infectious in the setting of diabetic foot versus metabolic versus toxic could be due to meth use along with baclofen or to elevated blood sugars ? U tox was also positive for meth ? Lactic acid 2.8 on admission and 1.7 this morning ?ESR 65 and CRP 27.33 ?GPC's in 1 out of 2 bottles on the blood cultures, mostly contaminant will wait for official cultures sensitivity. -A/Ox3 today Plan: ?Will continue with Rocephin [08/21/2024?] ? x-ray of left foot showed changes consistent with possible osteomyelitis, patient follows up with outpatient wound care ?Pending blood cx sensitivity ?Wound care ordered ?Will continue to monitor #Hx of hypertension #Hypertensive emergency ? Patient's had a rapid response called yesterday due to high blood pressure in the 200s over 100. ? Patient got labetalol 5 mg x 1 ? Blood pressure went down to 160s over 80s after labetalol ? Patient blood pressure today still elevated. Plan: -Increaed losartan 50mg qday ? Will continue to monitor for now #Uncontrolled DM2 # Hyperglycemia ? A1c 11.8 08/2024 Plan: ? Insulin glargine 22 units daily - Lispro 7 units TID with meals ? ISS ? Accu-Cheks hypoglycemia protocol ordered ? Continue monitor #FRANK, resolved ? Patient initially came in with creatinine of 2.3 and down trended to 1.2 today ? Patient's baseline creatinine 0.9 Plan: ? Renal dose medication ? Avoid nephrotoxic agents ?Will continue to monitor #Electrolyte imbalance #Hypokalemia ? Patient's potassium was 3.9 today Plan: ? Will replete as necessary #Microcytic normochromic anemia ? Hemoglobin 10.5 today ? Hemoglobin on admission 13.4 ? Most likely hemodilutional given the patient got IV fluids ? Will transfuse hemoglobin less than 7 ? Will continue to monitor #Pyuria ? Patient's UA was positive for WBCs ? Patient does not have any symptoms nor bacteria in the urine ? Will continue to monitor Disposition: Patient pending cultures, continue Abx, pending Blood cx sensitivity. Diet: carb consistent + dysphagia 3 GI prophylaxis: protonix DVT prophylaxis: heparin sc Code: full Case disclosed with Attending Dr. Romero and my senior Dr. Delarosa PGY3 [facility] PGY1 Attending Provider Attestation/Addendum I, Valentina Romero, DO, attest that I was physically present for the lewis portions of the service and evaluated the patient with the resident and I reviewed and discussed the case with the resident and agree with the resident's findings and plans of care as documented above Patient seen and eval this a.m. Resting comfortably. Patient is much more alert today. Doing well. Blood glucose continues to uptrend, will uptitrate insulin to 22 units of glargine and 7 units 3 times daily with meals of lispro. Patient has 1 out of 2 blood cultures positive resembling staph, likely contamination. However, leukocytosis appears to be uptrending. Will follow-up with final cultures and sensitivities. Will also continue IV Rocephin at this time. Urine culture was negative for UTI. Patient will need home health upon discharge. Anticipate discharge in the next 24 to 48 hours if patient remains stable.
[2024-08-23] MEDS: INSULIN LISPRO (AdmeLOG) 1 UNIT/0.01 ML UNIT 7 UNIT SC (11:44)
[2024-08-23] MEDS: cefTRIAXone 1,000 MG in SODIUM CHLORIDE 0.9% (P) 50 ML 100 MG IV (20:03)
--- NOTE | 2024-08-23 20:09 | PC.NURSE ---
called [facility] [employer] reticulation drafting officer re iu=[id number], hr=75, pt has prn labetalol iv.
[2024-08-23] MEDS: LABETALOL INJ 5 MG/ML VIAL 20 ML 10 MG IVP (20:15)
[2024-08-24] VITALS (10 sets, daily range): BP systolic 144–181; BP diastolic 66–84; PULSE 72–89; RESP 16–19; TEMP 36.3–37.1; O2SAT 93–94
[2024-08-24 06:15] LABS: Basophils # (Auto) 0.1 Thou/mm3 (0.0-0.2); Basophils % (Auto) 1 % (0-2.5); Eosinophils # (Auto) 0.3 Thou/mm3 (0.0-0.5); Eosinophils % (Auto) 2 % (0-10); Hematocrit 30.5 % (36.0-46.0); Hemoglobin 10.3 g/dL (12.0-16.0); Immature Granulocytes % (Auto) 2 % (0-0); Immature Granulocytes Auto 0.34 Thou/mm3 (0.00-0.00); Lymphocytes # (Auto) 2.1 Thou/mm3 (1.0-4.8); Lymphocytes % (Auto) 12 % (10-50); Mean Corpuscular HGB Conc 33.8 g/dl (31.0-37.0); Mean Corpuscular Hemoglobin 25.8 pg (25.0-35.0); Mean Corpuscular Volume 76 fL (80-100); Monocytes # (Auto) 1.8 Thou/mm3 (0.0-0.8); Monocytes % (Auto) 11 % (0-12); Neutrophils # (Auto) 12.4 Thou/mm3 (1.8-7.7); Neutrophils % (Auto) 73 % (37-80); Nucleated Red Blood Cell % 0 /100 WBC (0); Platelet Count 178 Thou/mm3 (140-440); RDW Standard Deviation 39.7 fL (36.4-46.3); Red Blood Count 3.99 Miln/mm3 (4.00-5.20)
[2024-08-24] MEDS: ACETAMINOPHEN 325 MG TABLET 650 MG PO ×3 (06:27→22:46)
[2024-08-24 06:42] LABS: Alanine Aminotransferase 15 U/L (10-49); Albumin, Serum 2.5 gm/dL (3.4-4.8); Albumin/Globulin Ratio 0.9 (1.2-2.2); Alkaline Phosphatase 158 U/L (46-116); Anion Gap 6 (7-16); Aspartate Amino Transferase 30 U/L (0-34); BUN/Creatinine Ratio 30 Ratio (12-20); Bilirubin,Total 0.5 mg/dL (0.3-1.2); Blood Urea Nitrogen 27 mg/dL (9-23); Calcium 7.9 mg/dL (8.3-10.6); Calcium (Corrected) 9.1 mg/dL (8.5-10.1); Carbon Dioxide 25.1 mMol/L (20.0-31.0); Chloride 98 mMol/L (98-107); Creatinine (Component) 0.9 mg/dL (0.6-1.3); Estimated Creatinine Clearance 50.9 mL/min (>60); Globulin 2.8 gm/dL (2.3-3.5); Glucose 203 mg/dL (74-106); Magnesium 1.6 mg/dL (1.6-2.6); Osmolality,Calculated 270 (275-295); Potassium 3.9 mMol/L (3.4-5.1); Sodium 129 mMol/L (136-145); Total Protein 5.3 gm/dL (5.7-8.2); eGFR > 60 See Note
[2024-08-24] MEDS: INSULIN LISPRO (AdmeLOG) 1 UNIT/0.01 ML UNIT SC ×3 (07:45→17:05)
[2024-08-24] MEDS: INSULIN LISPRO (AdmeLOG) 1 UNIT/0.01 ML UNIT 7 UNIT SC ×3 (07:45→17:06)
[2024-08-24] MEDS: INSULIN GLARGINE (Lantus) 5 UNIT/0.05 ML (PER 5 UNITS) 22 UNIT SC (08:24)
[2024-08-24] MEDS: PANTOPRAZOLE INJ 40 MG VIAL IVP (08:25)
[2024-08-24] MEDS: LOSARTAN POTASSIUM 25 MG TABLET 50 MG PO (08:26)
[2024-08-24] MEDS: HEPARIN SOD INJ 5000 UNIT/ML VIAL SC ×2 (08:26→20:48)
[2024-08-24] MEDS: amLODIPine BESYLATE 5 MG TABLET PO (08:27)
[2024-08-24] MEDS: SENNA TABLET 1 TAB PO (08:27)
--- NOTE | 2024-08-24 12:59 | ESPR_ITS ---
<Statement entered by Vani Delarosa MD - 08/24/24 17:34> I discussed with and supervised my co-resident involved in the care of this patient. I agree with the assessment and plan as documented above. Patient seen at bedside. No acute problems overnight. Baseline mentation. Afebrile, however leukocytosis uptrending. Blood cultures grew staph hominus 1/2 botles. Will get MRI of foot to assess for osteomyelitis as potential source of uptrending leukocytosis. Remains on IV antibiotics. Regarding patient's diabetes and hyperglycemia, will increase glargine. Vani Delarosa MD PGY-3 Documentation for date of: 08/24/24 Subjective Subjective Interval history: Patient was seen at bedside this morning. No overnight events. Patient has been very hypertensive therefore added amlodipine 5 mg daily, but will increase amlodipine to 10 mg tomorrow if blood pressure continues to be elevated. Patient's WBC keeps uptrending with 17 today, but no spikes in fevers and blood culture came back positive for Staph hominis which is likely a contaminant. Given that the patient has ulcers in her feet we will get MRI to assess for osteomyelitis. Will start patient on doxycycline. No other complaints at this time. Exam Vital Signs Temp Pulse Resp BP Pulse Ox O2 Del Method 97.6 F 73 18 164/78 H 94 L Room Air 08/24/24 11:40 08/24/24 11:40 08/24/24 11:40 08/24/24 11:40 08/24/24 11:40 08/24/24 11:40 Narrative Exam General: A/O x3, no acute distress Eyes: PERRL, EOMI. Anicteric, vision grossly intact. Ears: No ear pain, no ear discharge, Hearing grossly intact. Nose: No nasal discharge. Mouth/Throat: Moist mucous membranes, no redness, no lesions. Neck: Neck supple, non-tender, no cervical lymphadenopathy. Lungs: Clear OSMANI to auscultation and percussion, No accessory muscle use. Cardio: Normal S1/S2, regular rhythm, no murmurs, no JVD or carotid bruits. Abdomen: Soft, non-tender, no palpable masses, peristalsis present, no guarding or rebound. Extremities: Symmetrical, no significant deformities, no peripheral edema , non-tender, peripheral pulses presents. Skin: No rashes, no lesions, warm to touch. R great toe ulcer and ulcer in upper plantar area of L foot. Neuro: No focal neurological deficits, motor and sensory intact. Objective Labs 08/25/24 05:11 08/25/24 05:11 Labs: Laboratory Results - last 24 hr 08/24/24 04:40 WBC 17.0 H RBC 3.99 L Hgb 10.3 L Hct 30.5 L MCV 76 L MCH 25.8 MCHC 33.8 RDW Std Deviation 39.7 Plt Count 178 D Neut % (Auto) 73 Lymph % (Auto) 12 [place] % (Auto) 11 Eos % (Auto) 2 Baso % (Auto) 1 Neut # (Auto) 12.4 H Lymph # (Auto) 2.1 [place] # (Auto) 1.8 H Eos # (Auto) 0.3 Baso # (Auto) 0.1 Immature Gran # (Auto) 0.34 H Absolute Nucleated RBC 0.00 Immature Gran % 2 H Nucleated RBC % 0 Sodium 129 L Potassium 3.9 Chloride 98 Carbon Dioxide 25.1 Anion Gap 6 L BUN 27 H Creatinine 0.9 Estim Creat Clear Calc 50.9 L eGFR > 60 BUN/Creatinine Ratio 30 H Glucose 203 H Calculated Osmolality 270 L Calcium 7.9 L Corrected Calcium 9.1 Magnesium 1.6 Total Bilirubin 0.5 AST 30 ALT 15 Alkaline Phosphatase 158 H D Total Protein 5.3 L Albumin 2.5 L Globulin 2.8 Albumin/Globulin Ratio 0.9 L ABG Interpretation ABG results: 08/20/24 19:56 ABG pH 7.39 ABG pCO2 38 ABG pO2 74 L ABG HCO3 23 ABG O2 Saturation 94 ABG Base Excess -2 Quality Measures Quality Measures none Advance care planning discussed with:: patient Assessment & Plan Assessment Current Active Medications: Generic Name Dose Route Start Last Admin Trade Name Freq PRN Reason Stop Dose Admin Acetaminophen 650 mg 08/20/24 21:34 Acetaminophen 325 Mg Tablet PO 09/19/24 21:33 Q6H PRN Fever >101.5 Acetaminophen 650 mg 08/22/24 02:10 08/24/24 06:27 Acetaminophen 325 Mg Tablet PO 09/21/24 02:06 650 mg Q6HR PRN Administration PAIN Amlodipine Besylate 5 mg 08/24/24 09:00 08/24/24 08:27 Amlodipine Besylate 5 Mg Tablet PO 09/23/24 08:59 5 mg QDAY KALPESH Administration Dextrose 25 ml 08/20/24 21:39 Dextrose 50%-Water Inj 50 Ml Syringe IV 09/19/24 21:38 Q15MIN PRN BG 50-70 responsive npo pt Dextrose 50 ml 08/20/24 21:39 Dextrose 50%-Water Inj 50 Ml Syringe IV 09/19/24 21:38 Q15MIN PRN BG <50 OR BG <70 & pt unresponsive Doxycycline Hyclate 100 mg 08/24/24 21:00 Doxycycline 100 Mg Tablet PO 08/31/24 20:59 BID KALPESH Glucagon 1 mg 08/20/24 21:39 Glucagon Inj 1 Mg Vial IM Q15MIN PRN BG <70, and no IV access Heparin Sodium (Porcine) 5,000 unit 08/21/24 09:00 08/24/24 08:26 Heparin Sod Inj 5000 Unit/Ml Vial SC 09/04/24 08:59 5,000 unit Q12H KALPESH Administration Hydralazine HCl 10 mg 08/23/24 17:49 Hydralazine Inj 20 Mg/Ml Vial IV 09/22/24 17:48 Q6HR PRN systolic >180 and HR <70 Ceftriaxone Sodium 1,000 mg/ 50 mls @ 100 mls/hr 08/22/24 21:00 08/23/24 20:03 Sodium Chloride IV 08/28/24 20:59 100 mls/hr HS KALPESH Administration Insulin Glargine 22 unit 08/23/24 09:00 08/24/24 08:24 Insulin Glargine (Lantus) 5 Unit/0.05 Ml (Per 5 Units) SC 09/22/24 08:59 22 unit QDAY KALPESH Administration Insulin Human Lispro 0 unit 08/22/24 14:34 08/24/24 11:23 Insulin Lispro (Admelog) 1 Unit/0.01 Ml Unit SC 09/20/24 07:29 4 unit AC KALPESH Administration Protocol Insulin Human Lispro 7 unit 08/23/24 11:30 08/24/24 11:24 Insulin Lispro (Admelog) 1 Unit/0.01 Ml Unit SC 09/22/24 11:29 7 unit AC KALPESH Administration Labetalol HCl 10 mg 08/23/24 17:49 08/23/24 20:15 Labetalol Inj 5 Mg/Ml Vial 20 Ml IVP 09/22/24 17:48 10 mg Q6HR PRN Administration systolic >180 and HR >70 Losartan Potassium 50 mg 08/24/24 09:00 08/24/24 08:26 Losartan Potassium 25 Mg Tablet PO 09/23/24 08:59 50 mg QDAY KALPESH Administration Ondansetron HCl 4 mg 08/20/24 21:34 Ondansetron Inj 2 Mg/Ml Inj 2 Ml IV 09/19/24 21:33 Q6H PRN NAUSEA OR VOMITING Protocol Pantoprazole Sodium 40 mg 08/21/24 09:00 08/24/24 08:25 Pantoprazole Inj 40 Mg Vial IVP 09/20/24 08:59 40 mg QDAY KALPESH Administration Sennosides 1 tab 08/21/24 09:00 08/24/24 08:27 Senna Tablet PO 09/20/24 08:59 1 tab QDAY KALPESH Administration Protocol Plan 69-year-old female with past medical history of of DM2, diabetic nephropathy, hypertension, and diabetic foot was admitted to the hospital on 08/20/2024 due to acute encephalopathy likely in the setting of infectious versus metabolic versus toxic etiology given the positive U tox for meth and try to increase use of baclofen. #Acute cephalopathy, infectious versus metabolic versus toxic #Diabetic foot #Meth use #Medication overdose #Lactic acidosis ? Patient initially came in with altered mental status and was found by her roommate who stated that for the last 3 days prior to admission the patient was in bed. ? Patient recently was started on baclofen as per patient she took more than the prescribed dose in the past few days. ?Patient has left diabetic foot ?DDx infectious in the setting of diabetic foot versus metabolic versus toxic could be due to meth use along with baclofen or to elevated blood sugars ? U tox was also positive for meth ? Lactic acid 2.8 on admission and 1.7 this morning ?ESR 65 and CRP 27.33 ?S. Hominis, mostly contaminant ? x-ray of left foot showed changes consistent with possible osteomyelitis, patient follows up with outpatient wound care Plan: ?Will continue with Rocephin [08/21/2024?] -Added Doxycycline 100mg BID [08/24/2024-] ?MRI OSMANI foot ordered ?Wound care ordered ?Will continue to monitor #Hx of hypertension #Hypertensive emergency ? Patient's had a rapid response called yesterday due to high blood pressure in the 200s over 100. ? Patient got labetalol 5 mg x 1 ? Blood pressure went down to 160s over 80s after labetalol ? Patient blood pressure today still elevated. Plan: -Continue losartan 50mg qday and added amlodipine 5mg qday ? Will continue to monitor for now #Uncontrolled DM2 # Hyperglycemia ? A1c 11.8 08/2024 Plan: ? Insulin glargine 22 units daily - Lispro 7 units TID with meals ? ISS ? Accu-Cheks hypoglycemia protocol ordered ? Continue monitor #FRANK, resolved ? Patient initially came in with creatinine of 2.3 and down trended to 0.9 today ? Patient's baseline creatinine 0.9 Plan: ? Renal dose medication ? Avoid nephrotoxic agents ?Will continue to monitor #Electrolyte imbalance #Hypokalemia ? Patient's potassium was 3.9 today Plan: ? Will replete as necessary #Microcytic normochromic anemia ? Hemoglobin 10.3 today ? Hemoglobin on admission 13.4 ? Most likely hemodilutional given the patient got IV fluids ? Will transfuse hemoglobin less than 7 ? Will continue to monitor #Pyuria ? Patient's UA was positive for WBCs ? Patient does not have any symptoms nor bacteria in the urine ? Will continue to monitor Disposition: Patient pending cultures, continue Abx, pending MRI OSMANI foot Diet: carb consistent + dysphagia 3 GI prophylaxis: protonix DVT prophylaxis: heparin sc Code: full Case disclosed with Attending Dr. Decker and my senior Dr. Delarosa PGY3 Sabas Quiros PGY1 Attending Provider Attestation/Addendum I have discussed and was present for the essential components of the history, physical examination, diagnosis, and treatment plan with the resident. I agree with the patient's care as documented by the resident and amended herein by me. Iban Decker DO. Although this document has been carefully reviewed, there may still be some phonetic and other typographical errors. These errors are purely grammatical due to imperfections in the software program and should not be construed in any way to compromise the substance of the patient's medical care during this visit.
--- NOTE | 2024-08-24 14:34 | PC.SS ---
SS follow up note; MRI Pending, patient will possibly need IV ABX.
[2024-08-24] MEDS: DOXYCYCLINE 100 MG TABLET PO (20:41)
[2024-08-24] MEDS: HYDROcodone/APAP 5/325 TABLET 1 TAB PO (23:19)
[2024-08-25] VITALS (8 sets, daily range): BP systolic 121–176; BP diastolic 64–89; PULSE 75–100; RESP 18–20; TEMP 36.3–37.3; O2SAT 93–100
--- NOTE | 2024-08-25 | XR_ITS ---
Examination: MRI left, without contrast Date and time of exam: August 25, 2024 1032 hours INDICATIONS: Nonhealing ulcers left first digit Technique: Multiple axial sagittal and coronal images of the left foot have been obtained with the Siemens high-resolution 1.5 Linda MRI scanner. Images obtained include T2-weighted fat-suppressed sagittal sections, TR 3500, TE 46, T2 weighted coronal fat suppressed images, TR 3050, TE 84, T2-weighted transverse fat suppressed images, TR 3260, TE 63, proton density transverse images, TR 4720 TE 46, and T1 weighted coronal images, TR 560, TE 13. Findings: Soft tissue edema especially plantar to the first digit However, no soft tissue abscess No cortical bone destruction or marrow edema involving the first digit or first metatarsal Remaining digits intact Significant edema dorsum of the foot No significant edema about the third metatarsal IMPRESSION: Negative for osteomyelitis Negative for soft tissue abscess
[2024-08-25 05:48] LABS: Basophils # (Auto) 0.1 Thou/mm3 (0.0-0.2); Basophils % (Auto) 1 % (0-2.5); Eosinophils # (Auto) 0.3 Thou/mm3 (0.0-0.5); Eosinophils % (Auto) 2 % (0-10); Hematocrit 33.5 % (36.0-46.0); Hemoglobin 11.3 g/dL (12.0-16.0); Immature Granulocytes % (Auto) 3 % (0-0); Immature Granulocytes Auto 0.62 Thou/mm3 (0.00-0.00); Lymphocytes # (Auto) 2.2 Thou/mm3 (1.0-4.8); Lymphocytes % (Auto) 12 % (10-50); Mean Corpuscular HGB Conc 33.7 g/dl (31.0-37.0); Mean Corpuscular Hemoglobin 25.3 pg (25.0-35.0); Mean Corpuscular Volume 75 fL (80-100); Monocytes # (Auto) 1.7 Thou/mm3 (0.0-0.8); Monocytes % (Auto) 9 % (0-12); Neutrophils # (Auto) 13.2 Thou/mm3 (1.8-7.7); Neutrophils % (Auto) 73 % (37-80); Nucleated Red Blood Cell % 0 /100 WBC (0); Platelet Count 265 Thou/mm3 (140-440); RDW Standard Deviation 38.4 fL (36.4-46.3); Red Blood Count 4.46 Miln/mm3 (4.00-5.20); White Blood Count 18.2 Thou/mm3 (3.6-11.0)
[2024-08-25 06:24] LABS: Alanine Aminotransferase 21 U/L (10-49); Albumin, Serum 2.7 gm/dL (3.4-4.8); Albumin/Globulin Ratio 0.8 (1.2-2.2); Alkaline Phosphatase 204 U/L (46-116); Anion Gap 7 (7-16); Aspartate Amino Transferase 35 U/L (0-34); BUN/Creatinine Ratio 24 Ratio (12-20); Bilirubin,Total 0.7 mg/dL (0.3-1.2); Blood Urea Nitrogen 19 mg/dL (9-23); Calcium 8.1 mg/dL (8.3-10.6); Calcium (Corrected) 9.1 mg/dL (8.5-10.1); Carbon Dioxide 25.7 mMol/L (20.0-31.0); Chloride 97 mMol/L (98-107); Creatinine (Component) 0.8 mg/dL (0.6-1.3); Estimated Creatinine Clearance 57.3 mL/min (>60); Globulin 3.2 gm/dL (2.3-3.5); Glucose 213 mg/dL (74-106); Magnesium 1.5 mg/dL (1.6-2.6); Osmolality,Calculated 269 (275-295); Potassium 3.9 mMol/L (3.4-5.1); Sodium 130 mMol/L (136-145); Total Protein 5.9 gm/dL (5.7-8.2); eGFR > 60 See Note
[2024-08-25] MEDS: INSULIN LISPRO (AdmeLOG) 1 UNIT/0.01 ML UNIT SC ×2 (07:27→11:28)
[2024-08-25] MEDS: INSULIN LISPRO (AdmeLOG) 1 UNIT/0.01 ML UNIT 7 UNIT SC (07:28)
--- NOTE | 2024-08-25 08:11 | XR_ITS ---
Examination: Right foot 2 views Technique one AP lateral right foot 2 views Exam date and time: August 25, 2024 0832 hours INDICATIONS: Nonhealing ulcer first digit one month FINDINGS: Severe osteopenia No acute fracture No cortical bone destruction Soft tissue vascular calcification IMPRESSION: No aris cortical bone destruction Consider MRI foot without contrast follow-up
[2024-08-25] MEDS: Magnesium Sulfate 4 GM Ivpb 4 GM/50 ML BAG IV (09:13)
[2024-08-25] MEDS: SENNA TABLET 1 TAB PO (09:14)
[2024-08-25] MEDS: PANTOPRAZOLE INJ 40 MG VIAL IVP (09:14)
[2024-08-25] MEDS: HEPARIN SOD INJ 5000 UNIT/ML VIAL SC ×2 (09:14→20:11)
[2024-08-25] MEDS: INSULIN GLARGINE (Lantus) 5 UNIT/0.05 ML (PER 5 UNITS) 28 UNIT SC (09:14)
[2024-08-25] MEDS: LOSARTAN POTASSIUM 25 MG TABLET 50 MG PO (09:15)
[2024-08-25] MEDS: amLODIPine BESYLATE 5 MG TABLET 10 MG PO (09:16)
[2024-08-25] MEDS: DOXYCYCLINE 100 MG TABLET PO ×2 (09:16→20:11)
[2024-08-25] MEDS: LIDOCAINE 5% 1 PATCH TOP (09:16)
[2024-08-25] MEDS: INSULIN LISPRO (AdmeLOG) 1 UNIT/0.01 ML UNIT 9 UNIT SC (11:28)
--- NOTE | 2024-08-25 11:29 | ESPR_ITS ---
<Statement entered by Vani Delarosa MD - 08/25/24 11:45> I discussed with and supervised my co-resident involved in the care of this patient. I agree with the assessment and plan as documented above. Patient seen and examined at bedside. No acute events overnight. Mentation at baseline. Vitals show hypertension, will consider adding third agent. Leukocytosis elevated and hyperglycemic. Pending MRI of left foot to assess for possible osteomyelitis as source of infection. Continuing IV antibiotics. Will increase basal insulin for hyperglycemia. Vani Delarosa MD PGY-3 Documentation for date of: 08/25/24 Subjective Subjective Interval history: Patient was seen at bedside this morning. No overnight events. Patient's WBC continue to uptrend to 18.2. In the patient also has an ulcer on the right first toe ordered foot x-ray of the right foot which did not show any osteomyelitis. Still pending MRI of the left foot as well. No other complaints at this time. Exam Vital Signs Temp Pulse Resp BP Pulse Ox O2 Del Method 97.9 F 75 20 176/84 H 95 Room Air 08/25/24 07:31 08/25/24 09:16 08/25/24 07:31 08/25/24 09:16 08/25/24 07:31 08/25/24 07:31 Narrative Exam General: A/O x3, no acute distress Eyes: PERRL, EOMI. Anicteric, vision grossly intact. Ears: No ear pain, no ear discharge, Hearing grossly intact. Nose: No nasal discharge. Mouth/Throat: Moist mucous membranes, no redness, no lesions. Neck: Neck supple, non-tender, no cervical lymphadenopathy. Lungs: Clear OSMANI to auscultation and percussion, No accessory muscle use. Cardio: Normal S1/S2, regular rhythm, no murmurs, no JVD or carotid bruits. Abdomen: Soft, non-tender, no palpable masses, peristalsis present, no guarding or rebound. Extremities: Symmetrical, no significant deformities, no peripheral edema , non-tender, peripheral pulses presents. Skin: No rashes, no lesions, warm to touch. R great toe ulcer and ulcer in upper plantar area of L foot. Neuro: No focal neurological deficits, motor and sensory intact. Objective Labs 08/25/24 05:11 08/25/24 05:11 Labs: Laboratory Results - last 24 hr 08/25/24 05:11 WBC 18.2 H RBC 4.46 Hgb 11.3 L Hct 33.5 L MCV 75 L MCH 25.3 MCHC 33.7 RDW Std Deviation 38.4 Plt Count 265 D Neut % (Auto) 73 Lymph % (Auto) 12 [place] % (Auto) 9 Eos % (Auto) 2 Baso % (Auto) 1 Neut # (Auto) 13.2 H Lymph # (Auto) 2.2 [place] # (Auto) 1.7 H Eos # (Auto) 0.3 Baso # (Auto) 0.1 Immature Gran # (Auto) 0.62 H Absolute Nucleated RBC 0.00 Immature Gran % 3 H Nucleated RBC % 0 Sodium 130 L Potassium 3.9 Chloride 97 L Carbon Dioxide 25.7 Anion Gap 7 BUN 19 Creatinine 0.8 Estim Creat Clear Calc 57.3 L eGFR > 60 BUN/Creatinine Ratio 24 H Glucose 213 H Calculated Osmolality 269 L Calcium 8.1 L Corrected Calcium 9.1 Magnesium 1.5 L Total Bilirubin 0.7 AST 35 H ALT 21 Alkaline Phosphatase 204 H D Total Protein 5.9 Albumin 2.7 L Globulin 3.2 Albumin/Globulin Ratio 0.8 L ABG Interpretation ABG results: 08/20/24 19:56 ABG pH 7.39 ABG pCO2 38 ABG pO2 74 L ABG HCO3 23 ABG O2 Saturation 94 ABG Base Excess -2 Quality Measures Quality Measures none Advance care planning discussed with:: patient Assessment & Plan Assessment Current Active Medications: Generic Name Dose Route Start Last Admin Trade Name Raymon PRN Reason Stop Dose Admin Acetaminophen 650 mg 08/20/24 21:34 Acetaminophen 325 Mg Tablet PO 09/19/24 21:33 Q6H PRN Fever >101.5 Acetaminophen 650 mg 08/22/24 02:10 08/24/24 22:46 Acetaminophen 325 Mg Tablet PO 09/21/24 02:06 650 mg Q6HR PRN Administration PAIN Amlodipine Besylate 10 mg 08/25/24 09:00 08/25/24 09:16 Amlodipine Besylate 5 Mg Tablet PO 09/24/24 08:59 10 mg QDAY KALPESH Administration Dextrose 25 ml 08/20/24 21:39 Dextrose 50%-Water Inj 50 Ml Syringe IV 09/19/24 21:38 Q15MIN PRN BG 50-70 responsive npo pt Dextrose 50 ml 08/20/24 21:39 Dextrose 50%-Water Inj 50 Ml Syringe IV 09/19/24 21:38 Q15MIN PRN BG <50 OR BG <70 & pt unresponsive Doxycycline Hyclate 100 mg 08/24/24 21:00 08/25/24 09:16 Doxycycline 100 Mg Tablet PO 08/31/24 20:59 100 mg BID KALPESH Administration Glucagon 1 mg 08/20/24 21:39 Glucagon Inj 1 Mg Vial IM Q15MIN PRN BG <70, and no IV access Heparin Sodium (Porcine) 5,000 unit 08/21/24 09:00 08/25/24 09:14 Heparin Sod Inj 5000 Unit/Ml Vial SC 09/04/24 08:59 5,000 unit Q12H KALPESH Administration Hydralazine HCl 10 mg 08/23/24 17:49 Hydralazine Inj 20 Mg/Ml Vial IV 09/22/24 17:48 Q6HR PRN systolic >180 and HR <70 Magnesium Sulfate 4 gm in 50 mls @ 12.5 mls/hr 08/25/24 07:55 08/25/24 09:13 Magnesium Sulfate Ivpb IV 08/25/24 11:54 12.5 mls/hr X1 ONE Administration Ceftriaxone Sodium/Dextrose 2 gm in 50 mls @ 100 mls/hr 08/25/24 21:00 Rocephin/D5w 2gm IV 08/31/24 20:59 HS [facility] Insulin Glargine 28 unit 08/25/24 09:00 08/25/24 09:14 Insulin Glargine (Lantus) 5 Unit/0.05 Ml (Per 5 Units) SC 09/24/24 08:59 28 unit QDAY [facility] Administration Insulin Human Lispro 0 unit 08/22/24 14:34 08/25/24 07:27 Insulin Lispro (Admelog) 1 Unit/0.01 Ml Unit SC 09/20/24 07:29 4 unit AC [facility] Administration Protocol Insulin Human Lispro 9 unit 08/25/24 11:30 Insulin Lispro (Admelog) 1 Unit/0.01 Ml Unit SC 09/24/24 11:29 AC [facility] Labetalol HCl 10 mg 08/23/24 17:49 08/23/24 20:15 Labetalol Inj 5 Mg/Ml Vial 20 Ml IVP 09/22/24 17:48 10 mg Q6HR PRN Administration systolic >180 and HR >70 Lidocaine 1 patch 08/25/24 09:00 08/25/24 09:16 Lidocaine 5% 1 Patch TOP 09/24/24 08:59 1 patch QDAY KALPESH Administration Losartan Potassium 50 mg 08/24/24 09:00 08/25/24 09:15 Losartan Potassium 25 Mg Tablet PO 09/23/24 08:59 50 mg QDAY KALPESH Administration Ondansetron HCl 4 mg 08/20/24 21:34 Ondansetron Inj 2 Mg/Ml Inj 2 Ml IV 09/19/24 21:33 Q6H PRN NAUSEA OR VOMITING Protocol Pantoprazole Sodium 40 mg 08/21/24 09:00 08/25/24 09:14 Pantoprazole Inj 40 Mg Vial IVP 09/20/24 08:59 40 mg QDAY KALPESH Administration Sennosides 1 tab 08/21/24 09:00 08/25/24 09:14 Senna Tablet PO 09/20/24 08:59 1 tab QDAY KALPESH Administration Protocol Plan 69-year-old female with past medical history of of DM2, diabetic nephropathy, hypertension, and diabetic foot was admitted to the hospital on 08/20/2024 due to acute encephalopathy likely in the setting of infectious versus metabolic versus toxic etiology given the positive U tox for meth and try to increase use of baclofen. #Acute cephalopathy, infectious versus metabolic versus toxic #Diabetic foot #Meth use #Medication overdose #Lactic acidosis ? Patient initially came in with altered mental status and was found by her roommate who stated that for the last 3 days prior to admission the patient was in bed. ? Patient recently was started on baclofen as per patient she took more than the prescribed dose in the past few days. ?Patient has left diabetic foot ?DDx infectious in the setting of diabetic foot versus metabolic versus toxic could be due to meth use along with baclofen or to elevated blood sugars ? U tox was also positive for meth ? Lactic acid 2.8 on admission and 1.7 this morning ?ESR 65 and CRP 27.33 ?S[place]omin[place], mostly contaminant ? x-ray of left foot showed changes consistent with possible osteomyelitis, patient follows up with outpatient wound care Plan: ?Will continue with Rocephin [08/21/2024?] -Added Doxycycline 100mg BID [08/24/2024-] ?X-ray of right foot did not show osteomyelitis ?MRI left foot pending ?Wound care ordered ?Will continue to monitor #Hx of hypertension #Hypertensive emergency ? Patient's had a rapid response called yesterday due to high blood pressure in the 200s over 100. ? Patient got labetalol 5 mg x 1 ? Blood pressure went down to 160s over 80s after labetalol ? Patient blood pressure today still elevated. Plan: -Continue losartan 50mg qday and increased amlodipine 10mg qday ? Will continue to monitor for now #Uncontrolled DM2 # Hyperglycemia ? A1c 11.8 08/2024 Plan: ? Insulin glargine 28 units daily - Lispro 9 units TID with meals ? ISS ? Accu-Cheks hypoglycemia protocol ordered ? Continue monitor #FRANK, resolved ? Patient initially came in with creatinine of 2.3 and down trended to 0.8 today ? Patient's baseline creatinine 0.9 Plan: ? Renal dose medication ? Avoid nephrotoxic agents ?Will continue to monitor #Electrolyte imbalance #Hypokalemia, resolved ? Patient's potassium was 3.9 today Plan: ? Will replete as necessary #Microcytic normochromic anemia ? Hemoglobin 11.3 today ? Hemoglobin on admission 13.4 ? Most likely hemodilutional given the patient got IV fluids ? Will transfuse hemoglobin less than 7 ? Will continue to monitor #Pyuria ? Patient's UA was positive for WBCs ? Patient does not have any symptoms nor bacteria in the urine ? Will continue to monitor Disposition: Patient pending cultures, continue Abx, pending MRI OSMANI foot Diet: carb consistent + dysphagia 3 GI prophylaxis: protonix DVT prophylaxis: heparin sc Code: full Case disclosed with Attending Dr. Decker and my senior Dr. Delarosa PGY3 Sabas Quiros PGY1 Attending Provider Attestation/Addendum I have discussed and was present for the essential components of the history, physical examination, diagnosis, and treatment plan with the resident. I agree with the patient's care as documented by the resident and amended herein by me. Iban Decker, DO. Patient seen and evaluated this AM. No acute events overnight, MRI of the left foot was taken however read is pending. X-ray of the patient's right foot did not show any bony destruction at this time. Will continue ceftriaxone although at 2 g daily and doxycycline. Depending on MRI findings, patient may need a 6 weeks course total of IV antibiotics for osteomyelitis which will likely have to take place at [facility]. We most likely will get infectious disease on board once we get results of the MRI if osteomyelitis is demonstrated for antibiotic recommendations, may be able to be prescribed a p.o. regiment however we will see. Will continue to titrate insulin as necessary, magnesium was repleted today and will continue to titrate BP meds for better control. Although this document has been carefully reviewed, there may still be some phonetic and other typographical errors. These errors are purely grammatical due to imperfections in the software program and should not be construed in any way to compromise the substance of the patient's medical care during this visit.
--- NOTE | 2024-08-25 14:22 | PC.SS ---
SS follow up note; SS met with patient at bedside to discuss discharge plan. SS informed patient that there might be a possibility she might need IV ABX and therefore patient would need to discharge to SNF. Patient agreeable and verbalized understanding. SS will submit SNF referral once it's determined that patient will be needing IV ABX.
[2024-08-25] MEDS: cefTRIAXone/D5w 2gm 2 GM/50 ML BAG IV (20:11)
[2024-08-25] MEDS: ACETAMINOPHEN 325 MG TABLET 650 MG PO (21:46)
[2024-08-26] VITALS (7 sets, daily range): BP systolic 130–150; BP diastolic 71–77; PULSE 67–79; RESP 15–19; TEMP 36.3–36.9; O2SAT 93–95
[2024-08-26] MEDS: ACETAMINOPHEN 325 MG TABLET 650 MG PO (04:24)
[2024-08-26 05:47] LABS: Basophils # (Auto) 0.1 Thou/mm3 (0.0-0.2); Basophils % (Auto) 1 % (0-2.5); Eosinophils # (Auto) 0.4 Thou/mm3 (0.0-0.5); Eosinophils % (Auto) 2 % (0-10); Hematocrit 34.4 % (36.0-46.0); Hemoglobin 11.6 g/dL (12.0-16.0); Immature Granulocytes % (Auto) 5 % (0-0); Immature Granulocytes Auto 0.81 Thou/mm3 (0.00-0.00); Lymphocytes # (Auto) 1.9 Thou/mm3 (1.0-4.8); Lymphocytes % (Auto) 11 % (10-50); Mean Corpuscular HGB Conc 33.7 g/dl (31.0-37.0); Mean Corpuscular Hemoglobin 25.6 pg (25.0-35.0); Mean Corpuscular Volume 76 fL (80-100); Monocytes # (Auto) 1.5 Thou/mm3 (0.0-0.8); Monocytes % (Auto) 9 % (0-12); Neutrophils # (Auto) 12.2 Thou/mm3 (1.8-7.7); Neutrophils % (Auto) 72 % (37-80); Nucleated Red Blood Cell % 0 /100 WBC (0); Platelet Count 328 Thou/mm3 (140-440); RDW Standard Deviation 40.2 fL (36.4-46.3); Red Blood Count 4.53 Miln/mm3 (4.00-5.20); White Blood Count 16.9 Thou/mm3 (3.6-11.0)
[2024-08-26 06:19] LABS: Alanine Aminotransferase 23 U/L (10-49); Albumin, Serum 2.7 gm/dL (3.4-4.8); Albumin/Globulin Ratio 0.8 (1.2-2.2); Alkaline Phosphatase 264 U/L (46-116); Anion Gap 5 (7-16); Aspartate Amino Transferase 39 U/L (0-34); BUN/Creatinine Ratio 21 Ratio (12-20); Bilirubin,Total 0.6 mg/dL (0.3-1.2); Blood Urea Nitrogen 19 mg/dL (9-23); Calcium 7.9 mg/dL (8.3-10.6); Calcium (Corrected) 8.9 mg/dL (8.5-10.1); Carbon Dioxide 28.8 mMol/L (20.0-31.0); Chloride 94 mMol/L (98-107); Creatinine (Component) 0.9 mg/dL (0.6-1.3); Estimated Creatinine Clearance 50.9 mL/min (>60); Globulin 3.6 gm/dL (2.3-3.5); Glucose 280 mg/dL (74-106); Osmolality,Calculated 269 (275-295); Potassium 3.9 mMol/L (3.4-5.1); Sodium 128 mMol/L (136-145); Total Protein 6.3 gm/dL (5.7-8.2); eGFR > 60 See Note
[2024-08-26] MEDS: INSULIN LISPRO (AdmeLOG) 1 UNIT/0.01 ML UNIT SC ×2 (07:37→11:45)
[2024-08-26] MEDS: INSULIN LISPRO (AdmeLOG) 1 UNIT/0.01 ML UNIT 9 UNIT SC ×2 (07:38→11:46)
[2024-08-26] MEDS: LIDOCAINE 5% 1 PATCH TOP (09:53)
[2024-08-26] MEDS: amLODIPine BESYLATE 5 MG TABLET 10 MG PO (09:54)
[2024-08-26] MEDS: SENNA TABLET 1 TAB PO (09:54)
[2024-08-26] MEDS: LOSARTAN POTASSIUM 25 MG TABLET 50 MG PO (09:54)
[2024-08-26] MEDS: PANTOPRAZOLE 40 MG TABLET PO (09:54)
[2024-08-26] MEDS: HEPARIN SOD INJ 5000 UNIT/ML VIAL SC (09:55)
[2024-08-26] MEDS: DOXYCYCLINE 100 MG TABLET PO (09:55)
[2024-08-26] MEDS: INSULIN GLARGINE (Lantus) 5 UNIT/0.05 ML (PER 5 UNITS) 28 UNIT SC (09:56)
--- NOTE | 2024-08-26 16:26 | PC.CC ---
Addendum entered by Cathi Schuster RN 08/27/24 09:21: [facility] accepted and pending start of care date. Original Note: [facility] accepted for [facility]; booked. SOC pending. Patient has already discharged.
--- NOTE | 2024-08-28 15:22 | PC.CC ---
Referred to home health with [facility], start of care 08/29/24.
== END 2024-08-26 14:55 | disposition home health service (06) | DRG 917 ==
LOC: SERX 22:35 → SERHOLD 22:37 → S3NX 08-21 01:15
PROVIDERS: Admitting Provider Student in an Organized Health Care Education/Training Program; Emergency Provider Emergency Medicine; Visit Provider Internal Medicine
DX: T42.8X2A Poisoning by antiparkinsonism drugs and other central muscle-tone depressants, intentional self-harm, initial encounter (principal); G92.8 Other toxic encephalopathy; G93.41 Metabolic encephalopathy; E87.20 Acidosis, unspecified; N17.9 Acute kidney failure, unspecified; I16.1 Hypertensive emergency; N39.0 Urinary tract infection, site not specified; R44.3 Hallucinations, unspecified; I10 Essential (primary) hypertension; E11.40 Type 2 diabetes mellitus with diabetic neuropathy, unspecified; E86.0 Dehydration; F15.10 Other stimulant abuse, uncomplicated; G89.29 Other chronic pain; L97.519 Non-pressure chronic ulcer of other part of right foot with unspecified severity; E11.621 Type 2 diabetes mellitus with foot ulcer; E11.21 Type 2 diabetes mellitus with diabetic nephropathy; R74.01 Elevation of levels of liver transaminase levels; E11.65 Type 2 diabetes mellitus with hyperglycemia; E89.0 Postprocedural hypothyroidism; E87.6 Hypokalemia; D50.9 Iron deficiency anemia, unspecified; Z79.4 Long term (current) use of insulin; Z90.721 Acquired absence of ovaries, unilateral; Z88.0 Allergy status to penicillin
CPT/HCPCS: 36415; 36600; 70450; 71045; 73620; 73718; 80053; 80307; 80320; 80329; 81001; 82010; 82140; 82550; 82607; 82746; 82803; 83036; 83605; 83615; 83735; 84100; 84145; 84439; 84443; 84484; 85025; 85610; 85652; 85730; 86140; 87040; 87077; 87086; 87186; 87400; 87811; 93005; 93225; 94762; 96365; 96372; 97162; 99285; J0360; J0696; J1643; J1815; J2470; J3475; J3490; J7030; J7050; J7120; Z7610; A9270; G0480; J1920